=== PATIENT | female | born 1965 | race Caucasian/White ===

== ENCOUNTER 2016-08-14 22:50 | Emergency (ER) | payer SELFPAY ==
[2016-08-14] MEDS ORDERED: ASPIRIN 81 MG TABLET, CHEWABLE PO ONE (23:18)
--- NOTE | 2016-08-14 23:45 | EKG REPORT ---
SEVERITY:- BORDERLINE ECG - SINUS TACHYCARDIA CONSIDER INFERIOR INFARCT BORDERLINE T ABNORMALITIES, ANT-LAT LEADS : Confirmed by: Valeriy Jefferson 14-Aug-2016 23:43:57
[2016-08-15] MEDS ORDERED: CITALOPRAM HYDROBROMIDE 20 MG TABLET PO ONE (01:06)
[2016-08-15] MEDS ORDERED: ATENOLOL 50 MG TABLET PO ONE (01:06)
--- NOTE | 2016-08-15 01:06 | ER Document Report ---
ED Cardiac - General Chief Complaint: Chest Pain > 30 Stated Complaint: CHEST PAIN Time seen by provider: 01:05 Mode of Arrival: Ambulatory Information source: Patient TRAVEL OUTSIDE OF THE [place] IN LAST 30 DAYS: No - HPI Patient complains to provider of: Chest pain, Shortness of breath Was the onset of pain: Gradual Is the pain a: New problem Chest pain location: Other - Left anterior chest wall Quality of pain: Mild Severity now: None Severity at worst: Mild Chest pain precipitating factors: At Rest Cardiac risk factors: Hypertension Positive cardiac history: No Associated symptoms: None Exacerbated by: Coughing, Deep breaths, Torso movement Relieved by: Nothing Similar symptoms previously: No Recently seen / treated by doctor: No Notes: Patient is a 51-year-old female with a history of hypertension, who presents to the emergency room complaining of a headache 2-3 days and a fleeting episode of chest pain that occurred earlier in the evening, patient reports her chest pain is worse with movement, palpation or deep breaths, she states that she has had a productive cough this evening as well, denies having any chest pain at time of evaluation, patient does report that she recently ran out of her atenolol and Celexa a couple of days ago and is unable to get an appointment at the [facility] into September 14 - Related Data Allergies/Adverse Reactions: No Known Allergies Allergy (Verified 08/14/16 23:13) Past Medical History - General Information source: Patient - Social History Smoking Status: Never Smoker Chew tobacco use (# tins/day): No Frequency of alcohol use: None Drug Abuse: None Family History: Reviewed & Not Pertinent, Hypertension - Past Medical History Cardiac Medical History: Reports: Hx Hypercholesterolemia, Hx Hypertension Pulmonary Medical History: Denies: Hx COPD Endocrine Medical History: Denies: Hx Diabetes Mellitus Type 1, Hx Diabetes Mellitus Type 2 Renal/ Medical History: Denies: Hx Peritoneal Dialysis Psychiatric Medical History: Reports: Hx Anxiety, Hx Depression Past Surgical History: Reports: Hx Hysterectomy - Immunizations Hx Diphtheria, Pertussis, Tetanus Vaccination: Yes Review of Systems - Review of Systems Constitutional: No symptoms reported EENT: No symptoms reported Cardiovascular: Chest pain Respiratory: No symptoms reported Gastrointestinal: No symptoms reported Genitourinary: No symptoms reported Female Genitourinary: No symptoms reported Musculoskeletal: No symptoms reported Skin: No symptoms reported Hematologic/Lymphatic: No symptoms reported Neurological/Psychological: Headaches -: Yes All other systems reviewed and negative Physical Exam - Vital signs Vitals: Temp Pulse Resp BP Pulse Ox 98.6 F 123 H 20 196/122 H 99 08/14/16 23:09 08/14/16 23:09 08/14/16 23:09 08/14/16 23:09 08/14/16 23:09 Interpretation: Hypertensive, Tachycardic - General General appearance: Appears well, Alert - HEENT Head: Normocephalic, Atraumatic Eyes: Normal Pupils: PERRL - Respiratory Respiratory status: No respiratory distress Chest status: Tender - Tender to palpate over midsternum Breath sounds: Normal Chest palpation: Normal - Cardiovascular Rhythm: Regular Heart sounds: Normal auscultation Murmur: No - Abdominal Inspection: Normal Distension: No distension Bowel sounds: Normal Tenderness: Nontender Organomegaly: No organomegaly - Back Back: Normal, Nontender - Extremities General upper extremity: Normal inspection, Nontender, Normal color, Normal ROM , Normal temperature General lower extremity: Normal inspection, Nontender, Normal color, Normal ROM , Normal temperature, Normal weight bearing. No: Mak's sign - Neurological Neuro grossly intact: Yes Cognition: Normal Orientation: AAOx4 [place] Coma Scale Eye Opening: Spontaneous [place] Coma Scale Verbal: Oriented Mauro Coma Scale Motor: Obeys Commands [place] Coma Scale Total: 15 Speech: Normal Motor strength normal: LUE, RUE, LLE, RLE Sensory: Normal - Psychological Associated symptoms: Normal affect, Normal mood - Skin Skin Temperature: Warm Skin Moisture: Dry Skin Color: Normal Course - Re-evaluation Re-evalutation: 08/15/16 03:11 Patient resting comfortably and reports feeling much better, symptoms are resolved, blood pressure is 133/89, symptoms likely related to patient missing her medications for the last few days, she will be given a prescription for both atenolol and Celexa and advised to follow-up with the [facility] on September 14 as scheduled, or return if symptoms worsen, patient acknowledges understanding and agreement with this plan - Vital Signs Vital signs: Temp Pulse Resp BP Pulse Ox 98.6 F 123 H 12 133/89 H 100 08/14/16 23:09 08/14/16 23:09 08/15/16 03:01 08/15/16 03:01 08/15/16 04:01 - Laboratory Result Diagrams: 08/15/16 02:08 08/15/16 02:08 Laboratory results interpreted by me: 08/15/16 08/15/16 08/15/16 02:08 02:08 02:08 WBC 10.6 H Glucose 127 H Urine Protein 30 H Ur Leukocyte Esterase SMALL H - Diagnostic Test Radiology reviewed: Image reviewed, Reports reviewed - EKG Interpretation by Me EKG shows normal: Sinus rhythm Rate: Normal Rhythm: NSR When compared to previous EKG there are: No significant change Discharge - Discharge Clinical Impression: Headache Qualifiers: Headache type: unspecified Headache chronicity pattern: unspecified pattern Intractability: not intractable Qualified Code(s): R51 - Headache Hypertension Qualifiers: Hypertension type: essential hypertension Qualified Code(s): I10 - Essential ( primary) hypertension Condition: Stable Disposition: HOME, SELF-CARE Instructions: Headache ([facility]) Additional Instructions: Follow up with your primary care provider in one to 2 days. Return to the emergency room immediately if symptoms worsen or any additional concerns. Prescriptions: Atenolol 75 mg PO QHS #30 tablet Citalopram Hydrobromide [Celexa 40 mg Tablet] 1 tab PO QHS #30 tablet Forms: Elevated Blood Pressure
[2016-08-15 02:23] LABS: ABSOLUTE BASOPHILS # (AUTO) 0.1 10^3/uL (0.0-0.2); ABSOLUTE EOSINOPHILS # (AUTO) 0.4 10^3/uL (0.0-0.6); ABSOLUTE LYMPHOCYTES (AUTO) 3.4 10^3/uL (0.5-4.7); ABSOLUTE MONOCYTES (AUTO) 0.6 10^3/uL (0.1-1.4); ABSOLUTE NEUT (AUTO) 6.3 10^3/uL (1.7-8.2); BASOPHILS % (AUTO) 0.6 % (0-2); EOSINOPHILS % (AUTO) 3.5 % (0-6); HEMATOCRIT 38.1 % (36.0-47.0); HEMOGLOBIN 12.8 g/dL (12.0-15.5); HGB HCT DIFFERENCE 0.3; LYMPHOCYTES % (AUTO) 31.7 % (13-45); MEAN CORPUSCULAR HEMOGLOBIN 28.4 pg (27.0-33.4); MEAN CORPUSCULAR HGB CONC 33.7 g/dL (32.0-36.0); MEAN CORPUSCULAR VOLUME 85 fl (80-97); MONOCYTES % (AUTO) 5.3 % (3-13); RED BLOOD COUNT 4.51 10^6/uL (3.72-5.28); RED CELL DISTRIBUTION WIDTH 13.6 % (11.5-14.0); SEGMENTED NEUTROPHILS % (AUTO) 58.9 % (42-78); WHITE BLOOD COUNT 10.6 10^3/uL (4.0-10.5)
[2016-08-15 02:36] LABS: ALANINE AMINOTRANSFERASE 24 U/L (9-52); ALBUMIN 4.2 g/dL (3.5-5.0); ALKALINE PHOSPHATASE 82 U/L (38-126); ANION GAP 13 (5-19); ASPARTATE AMINO TRANSFERASE 23 U/L (14-36); BILIRUBIN,TOTAL 0.3 mg/dL (0.2-1.3); BLOOD UREA NITROGEN 13 mg/dL (7-20); CALCIUM 10.1 mg/dL (8.4-10.2); CARBON DIOXIDE 27 mmol/L (22-30); CHLORIDE 102 mmol/L (98-107); CREATINE KINASE 68 U/L (30-135); CREATININE RESULT 0.75 mg/dL (0.52-1.25); GLUCOSE 127 mg/dL (75-110); POTASSIUM 4.4 mmol/L (3.6-5.0); SODIUM 142.4 mmol/L (137-145)
[2016-08-15 02:40] LABS: APPEARANCE,URINE SLIGHTLY-CLOUDY; BILIRUBIN,URINE NEGATIVE (NEGATIVE); GLUCOSE, URINE NEGATIVE (NEGATIVE); KETONES,URINE NEGATIVE (NEGATIVE); LEUKOCYTE ESTERASE,URINE SMALL (NEGATIVE); NITRITE,URINE NEGATIVE (NEGATIVE); PROTEIN,URINE 30 mg/dL (NEGATIVE); URINE SPECIFIC GRAVITY 1.025; UROBILINOGEN,URINE NEGATIVE mg/dL (<2.0)
[2016-08-15 02:54] LABS: CREATINE KINASE MB 0.76 ng/mL (<4.55)
[2016-08-15 02:57] LABS: TROPONIN I < 0.012 ng/mL
[2016-08-15 04:20] VITALS: BP 135/92
== END 2016-08-15 04:22 | disposition home or self-care (01) ==
LOC: ER 22:50
DX: R51 Headache (principal); I10 Essential (primary) hypertension; R07.9 Chest pain, unspecified; R06.02 Shortness of breath; E78.00 Pure hypercholesterolemia, unspecified; Z90.710 Acquired absence of both cervix and uterus
CPT/HCPCS: 36415; 71020; 80053; 81001; 82550; 82553; 83880; 84484; 85025; 93005; 93010; 99285

== ENCOUNTER 2017-01-19 13:29 | Emergency (ER) | payer SELFPAY ==
[2017-01-19] MEDS ORDERED: PROMETHAZINE HCL 25 MG TABLET PO ONE (13:50)
[2017-01-19] MEDS ORDERED: OXYCODONE-ACETAMINOPHEN 5-325 MG TABLET PO ONE (13:50)
--- NOTE | 2017-01-19 14:44 | ER Document Report ---
ED Medical Screen (RME) - General Chief Complaint: Dizziness Stated Complaint: MOUTH PAIN,HEADACHE Time Seen by Provider: 01/19/17 13:50 Notes: Patient is complaining of pain in a cracked tube in the upper right gum that has been there for quite a while, but increased and got much worse last night. Additionally, Monday, she began having a severe frontal headache and feeling dizzy yesterday. No nausea or vomiting. No fever. History of hypertension. History of depression, out of medications. History of anxiety. TRAVEL OUTSIDE OF THE [place] IN LAST 30 DAYS: No - Related Data Allergies/Adverse Reactions: No Known Allergies Allergy (Verified 01/19/17 13:40) Past Medical History - Past Medical History Cardiac Medical History: Reports: Hx Hypercholesterolemia, Hx Hypertension Pulmonary Medical History: Denies: Hx COPD Endocrine Medical History: Denies: Hx Diabetes Mellitus Type 1, Hx Diabetes Mellitus Type 2 Renal/ Medical History: Denies: Hx Peritoneal Dialysis Psychiatric Medical History: Reports: Hx Anxiety, Hx Depression Past Surgical History: Reports: Hx Hysterectomy - Immunizations Hx Diphtheria, Pertussis, Tetanus Vaccination: Yes Physical Exam - Vital signs Vitals: Temp Pulse Resp BP Pulse Ox 98.5 F 104 H 18 150/105 H 99 01/19/17 13:39 01/19/17 13:39 01/19/17 13:39 01/19/17 13:39 01/19/17 13:39 Course - Vital Signs Vital signs: Temp Pulse Resp BP Pulse Ox 98.5 F 104 H 18 150/105 H 99 01/19/17 13:39 01/19/17 13:39 01/19/17 13:39 01/19/17 13:39 01/19/17 13:39
[2017-01-19] MEDS ORDERED: DIPHENHYDRAMINE HCL 50 MG/ML VIAL IV ONE (15:01)
[2017-01-19] MEDS ORDERED: PROCHLORPERAZINE EDISYLATE INJ 10 MG/2 ML VIAL IV ONE (15:01)
[2017-01-19] MEDS ORDERED: KETOROLAC TROMETHAMINE INJ/PF 30 MG/1 ML SDV IV ONE (15:01)
[2017-01-19] MEDS ORDERED: NORMAL SALINE 1000 ML 1,000 ML IV ONE (15:01)
[2017-01-19] MEDS ORDERED: BUPIVACAINE HCL 0.75% INJ/PF (7.5 MG/1 ML) 10 ML SDV INJ ONE (15:05)
--- NOTE | 2017-01-19 15:09 | ER Document Report ---
HPI - HPI Pain Level: 5 Notes: Patient is a 51-year-old female who presents to the ED complaining of a headache 1-2 days along with right upper molar pain 1 day. Patient states that she does have poor dentition and she has had intermittent pain in that right tooth for years, but began noticing a really sharp pain just recently and is wondering if nerve is exposed. Patient does not believe that her tooth is infected. She has not noticed any discharge swelling, or any fever. Patient states that she does feel a little bit dizzy at times. She does have nasal congestion discharge. Patient states that she did have a URI recently but that has since overall resolved. She still eating and drink without any problems. The headache pain does not radiate and is near the frontal/top of her head. The pain is not debilitating. Patient states that she has had headaches like this in the past. She denies any smoking history or drug use. Denies any alcohol intake. Patient states that she has no drug allergies. Patient has a history of hypertension and depression which she takes medication for. Denies any recent travel or sick contacts. Patient states that immunizations are up-to -date. Denies any fever, ear pain, changes in vision/mentation/speech, sore throat, dysphagia, dysphasia, chest pain, palpitations, syncope, cough, wheeze, shortness of breath, abdominal pain, nausea/vomiting/diarrhea, loss of control bowel or bladder, urinary retention, dysuria, hematuria, muscle paralysis/ weakness, numbness/tingling, or rash. - ROS Notes: REVIEW OF SYSTEMS: CONSTITUTIONAL : Denies fever, chills, or sweats. Denies recent illness. EENT: see hpi CARDIOVASCULAR: Denies chest pain. Denies palpitations or racing or irregular heart beat. Denies ankle edema. RESPIRATORY: Denies cough, cold, or chest congestion. Denies shortness of breath, difficulty breathing, or wheezing. GASTROINTESTINAL: Denies abdominal pain or distention. Denies nausea, vomiting , or diarrhea. Denies blood in vomitus, stools, or per rectum. Denies black, tarry stools. Denies constipation. GENITOURINARY: Denies difficulty urinating, painful urination, burning, frequency, blood in urine, or discharge. MUSCULOSKELETAL: Denies back or neck pain or stiffness. Denies joint pain or swelling. SKIN: Denies rash, lesions or sores. NEUROLOGICAL: + AVILA/occ dizziness. see hpi. Denies confusion or altered mental status. Denies passing out or loss of consciousness. Denies lightheadedness. Denies weakness or paralysis or loss of use of either side. Denies problems with gait or speech. Denies sensory loss, numbness, or tingling. Denies seizures. PSYCHIATRIC: Denies anxiety or stress. Denies depression, suicidal ideation, or homicidal ideation. ALL OTHER SYSTEMS REVIEWED AND NEGATIVE. Dictation was performed using [employer] voice recognition software - REPRODUCTIVE Reproductive: DENIES: : - DERM Skin Color: Normal Past Medical History - Social History Smoking Status: Never Smoker Family History: Reviewed & Not Pertinent, Hypertension Patient has suicidal ideation: No Patient has homicidal ideation: No - Past Medical History Cardiac Medical History: Reports: Hx Hypercholesterolemia, Hx Hypertension Pulmonary Medical History: Denies: Hx COPD Endocrine Medical History: Denies: Hx Diabetes Mellitus Type 1, Hx Diabetes Mellitus Type 2 Renal/ Medical History: Denies: Hx Peritoneal Dialysis Psychiatric Medical History: Reports: Hx Anxiety, Hx Depression Past Surgical History: Reports: Hx Hysterectomy - Immunizations Hx Diphtheria, Pertussis, Tetanus Vaccination: Yes Vertical Provider Document - CONSTITUTIONAL Agree With Documented VS: Yes Notes: PHYSICAL EXAMINATION: GENERAL: Well-appearing, well-nourished and in no acute distress. HEAD: Atraumatic, normocephalic. Non-tender. EYES: Pupils equal round and reactive to light, extraocular movements intact, sclera anicteric, conjunctiva are normal. [place] intact. ENT: EAC clear b/l. TM's intact b/l without erythema, fluid, or perforation. Nares patent and without discharge. oropharynx clear without exudates. No tonsilar hypertrophy or erythema. Moist mucous membranes. No sinus tenderness. No facial swelling Mouth: Fractured #3 molar with decay and generalized poor dentition in the mouth. No erythema, abscess, or discharge noted. + sensitivity/tenderness. NECK: Normal range of motion, supple without lymphadenopathy. No rigidity/ meningismus. LUNGS: Breath sounds clear to auscultation bilaterally and equal. No wheezes rales or rhonchi. HEART: Regular rate and rhythm without murmurs, rubs, gallops. ABDOMEN: Soft, nontender, nondistended abdomen. No guarding, no rebound. No masses appreciated. Normal bowel sounds present. No CVA tenderness bilaterally. Musculoskeletal: Ext b/l: FROM to passive/active. Strength 5+/5. Extremities: No cyanosis, clubbing, or edema b/l. Peripheral pulses 2+. Capillary refill less than 2 seconds. NEUROLOGICAL: MMSE intact. Cranial nerves grossly intact. Normal speech, normal gait. Normal sensory, motor exams. Reflexes 2+ b/l. Pronator neg b/l. SLIM's intact. Rooney-heel, finger-nose intact. PSYCH: Normal mood, normal affect. SKIN: Warm, Dry, normal turgor, no rashes or lesions noted. - INFECTION CONTROL TRAVEL OUTSIDE OF THE [place] IN LAST 30 DAYS: No - RESPIRATORY O2 Sat by Pulse Oximetry: 99 Course - Re-evaluation Re-evalutation: 01/19/17 16:50 Patient is an afebrile, well-hydrated, 51-year-old female who presents to the ED with a headache and dental pain. Vitals are stable. PE otherwise unremarkable for any focal neurological deficits. MMSE intact. Low suspicion for acute glaucoma, temporal arteritis, meningitis, tracheal hemorrhage, ischemic stroke, fracture, blood leaks angina, pharyngeal abscess, respiratory compromise at this time. Compazine 10 mg IV, Benadryl 50 mg IV, Toradol 30 mg IV, and 1 L normal saline provided today. Patient had also received oxycodone at [facility]. Digital block performed successfully without complication. Patient noticed improvement within 10-20 seconds of the dental pain. I have a low suspicion for any dental infection, but will cover her prophylactically due to her poor dentition in the knee off chance that there is an infection that I cannot see at this time. I will give her clindamycin twice a day for 10 days. Advised patient to get an appointment with the dentist for removal of that tooth. Recheck with your PCM in 2-3 days. Return to the ED with any worsening/ concerning symptoms otherwise as reviewed discharge. Patient is in agreement. 01/19/17 16:53 Upon re-evaluation of patient. Pt states that she no longer has any AVILA and her tooth pain continues to be blocked adequately. No new concerns or complaints. Her daughter is here to take her home. Stable for discharge. - Vital Signs Vital signs: Temp Pulse Resp BP Pulse Ox 98.5 F 104 H 18 150/105 H 99 01/19/17 13:39 01/19/17 13:39 01/19/17 13:39 01/19/17 13:39 01/19/17 13:39 Procedures - Additional Procedures Dental block #3 molar Time performed: 15:40 Additional Procedures: Other - dental block #3 molar Notes: 01/19/17 15:50 2cc Sensorcaine 0.75% utilized to successfully block the #3 molar without complications. 21g 1.5" needle used with 5cc syringe. Discharge - Discharge Clinical Impression: Toothache Headache Qualifiers: Headache type: unspecified Headache chronicity pattern: acute headache Intractability: intractable Qualified Code(s): R51 - Headache Condition: Stable Instructions: [facility], Clindamycin ([facility]), Antinausea Medication ([facility]), Dizziness ([facility]), Toothache ([facility]) Additional Instructions: [place] and floss twice daily Peroxide rinse, salt water gargles Tylenol/ibuprofen as needed Rest Take antibiotic as directed Schedule an appointment with a dentist Recheck with your PCM in 2-3 days Return to the ED with any worsening symptoms and/or development of fever, headache, facial swelling, trouble swallowing, swelling in the mouth/throat/ tongue/lips, chest pain, palpitations, syncope, shortness of breath, trouble breathing, abdominal pain, n/v/d, blood in stool/urine, loss of control of bowel /bladder, urinary retention, muscle weakness/paralysis, numbness/tingling, changes in speech/mentation/vision, or other worsening symptoms that are concerning to you. Prescriptions: Clindamycin HCl [Cleocin 300 mg Capsule] 300 mg PO BID #20 capsule Forms: Elevated Blood Pressure Referrals: [facility] [Provider Group] - Follow up as needed [facility] [Provider Group] - Follow up as needed [facility] [Provider Group] - Follow up as needed
[2017-01-19 17:47] VITALS: BP 138/73
== END 2017-01-19 17:20 | disposition home or self-care (01) ==
LOC: ER 13:29
DX: K08.89 Other specified disorders of teeth and supporting structures (principal); R51 Headache; R42 Dizziness and giddiness; R09.81 Nasal congestion
CPT/HCPCS: 99283; 96374; J3490; J1200; J1885; J0780; J7030

== ENCOUNTER 2017-06-20 | Emergency (ER) | payer SELFPAY ==
--- NOTE | 2017-06-20 02:05 | ER Document Report ---
HPI - HPI Pain Level: 3 Notes: Patient is a 52-year-old female with a history of hypertension depression who presents the ED complaining of nasal congestion/discharge, sinus pressure pain, frontal headache when bending forward, occasional dry nonproductive cough 2 weeks. Patient states that she has been using [id number] meds with minimal relief. She still eating and drinking without any difficulties. She is urinating normally having normal bowel movements. Patient denies any smoking or IV drug use. Denies any fever, head injury, neck pain, changes in vision/speech/mentation/hearing, sore throat, chest pain, palpitations, syncope , shortness of breath, wheeze, dyspnea, abdominal pain, nausea/vomiting/diarrhea , urinary retention, dysuria, hematuria, loss of control of bowel or bladder, numbness/tingling, muscle paralysis/weakness, or rash. - ROS Notes: REVIEW OF SYSTEMS: CONSTITUTIONAL : Denies fever, chills, or sweats. see hpi. EENT: see hpi. CARDIOVASCULAR: Denies chest pain. Denies palpitations or racing or irregular heart beat. Denies ankle edema. RESPIRATORY: see hpi. Denies shortness of breath, difficulty breathing, or wheezing. GASTROINTESTINAL: Denies abdominal pain or distention. Denies nausea, vomiting , or diarrhea. Denies blood in vomitus, stools, or per rectum. Denies black, tarry stools. Denies constipation. GENITOURINARY: Denies difficulty urinating, painful urination, burning, frequency, blood in urine, or discharge. MUSCULOSKELETAL: Denies back or neck pain or stiffness. Denies joint pain or swelling. SKIN: Denies rash, lesions or sores. NEUROLOGICAL: see hpi. Denies confusion or altered mental status. Denies passing out or loss of consciousness. Denies dizziness or lightheadedness. Denies weakness or paralysis or loss of use of either side. Denies problems with gait or speech. Denies sensory loss, numbness, or tingling. Denies seizures. PSYCHIATRIC: Denies anxiety or stress. Denies depression, suicidal ideation, or homicidal ideation. ALL OTHER SYSTEMS REVIEWED AND NEGATIVE. Dictation was performed using [email or web address] voice recognition software - REPRODUCTIVE Reproductive: DENIES: : Past Medical History - Social History Smoking Status: Never Smoker Family History: Reviewed & Not Pertinent, Hypertension - Past Medical History Cardiac Medical History: Reports: Hx Hypercholesterolemia, Hx Hypertension Pulmonary Medical History: Denies: Hx COPD Endocrine Medical History: Denies: Hx Diabetes Mellitus Type 1, Hx Diabetes Mellitus Type 2 Renal/ Medical History: Denies: Hx Peritoneal Dialysis Psychiatric Medical History: Reports: Hx Anxiety, Hx Depression Past Surgical History: Reports: Hx Hysterectomy - Immunizations Hx Diphtheria, Pertussis, Tetanus Vaccination: Yes Vertical Provider Document - CONSTITUTIONAL Agree With Documented VS: Yes Notes: PHYSICAL EXAMINATION: GENERAL: Well-appearing, well-nourished and in no acute distress. A&Ox4 HEAD: Atraumatic, normocephalic. EYES: Pupils equal round and reactive to light, extraocular movements intact, sclera anicteric, conjunctiva are normal. Vis dillard intact. ENT: EAC clear b/l. TM's intact b/l without erythema, fluid, or perforation. Nares patent and with yellow discharge. oropharynx clear without exudates. No tonsilar hypertrophy or erythema. Moist mucous membranes. + sinus tenderness. No facial swelling. No airway compromise. NECK: Normal range of motion, supple without lymphadenopathy. No rigidity/ meningismus. LUNGS: Breath sounds clear to auscultation bilaterally and equal. No wheezes rales or rhonchi. HEART: Regular rate and rhythm without murmurs, rubs, gallops. Musculoskeletal: FROM to passive/active. Strength 5+/5. Extremities: No cyanosis, clubbing, or edema b/l. Peripheral pulses 2+. Capillary refill less than 3 seconds. NEUROLOGICAL: MMSE intact. Cranial nerves grossly intact. Normal speech, normal gait. Normal sensory, motor exams. Pronator drift negative. SLIM's intact. PSYCH: Normal mood, normal affect. SKIN: Warm, Dry, normal turgor, no rashes or lesions noted. - INFECTION CONTROL TRAVEL OUTSIDE OF THE [place] IN LAST 30 DAYS: No - RESPIRATORY O2 Sat by Pulse Oximetry: 98 Course - Re-evaluation Re-evalutation: 06/20/17 02:40 Pt's blood pressure remains elevated. Pt did not take her evening atenolol dose. Atenolol 50mg given PO today. Reviewed with Dr. Chun who is in agreement with being able to discharge with current BP as there are no focal neurological deficits on exam. Patient is an afebrile, well-hydrated, 52-year-old female who presents the ED with acute sinusitis. Vitals otherwise are stable. PE is otherwise unremarkable for any focal neurological deficits. MMSE intact. Low suspicion for any ischemic stroke, intracranial hemorrhage, temporal arteritis, ACS, PE, pneumothorax, pericarditis, dissection, respiratory compromise, severe dehydration, sepsis, meningitis, or other systemic emergent condition at this time. Patient is aware that her condition can change from initial presentation and she needs to monitor symptoms closely and seek medical attention for any acute changes. I will send her home with a pocket prescription for Augmentin that she may begin in 2-3 days with ongoing/worsening symptoms. Recommend conservative measures for symptoms. Recheck with your PCM in 3-5 days. Return to the ED with any worsening/concerning symptoms otherwise as reviewed in discharge. Patient is in agreement. - Vital Signs Vital signs: Temp Pulse Resp BP Pulse Ox 98.6 F 93 18 167/105 H 98 06/20/17 00:01 06/20/17 00:01 06/20/17 00:01 06/20/17 00:01 06/20/17 00:01 Discharge - Discharge Clinical Impression: Acute sinusitis Qualifiers: Sinusitis location: other Recurrence: non-recurrent Qualified Code(s): J01.80 - Other acute sinusitis Condition: Stable Disposition: HOME, SELF-CARE Instructions: Sinusitis ([facility]) Additional Instructions: Maintain adequate fluid intake Take meds as directed with ongoing/worsening symptoms x2-3 days Take your Blood pressure meds as directed and monitor closely; low sodium diet. tylenol/ibuprofen as needed Nasal saline rinses and nasonex may help over the counter cold medication as needed for symptoms Humidified air may help F/u: with your PCM in 3-5 days for a recheck Return to the ED with any fever, worsening pain, chest pain, palpitations, syncope, worsening AVILA, neck pain/stiffness, shortness of breath, wheezing, drooling, trouble swallowing/breathing, abdominal pain, n/v/d, rash, or worsening/concerning symptoms otherwise. Prescriptions: Amox Tr/Potassium Clavulanate [Augmentin 875-125 Tablet] 1 tab PO BID 10 Days # 20 tablet Forms: Elevated Blood Pressure Referrals: [facility] [Provider Group] - Follow up as needed
[2017-06-20] MEDS ORDERED: ACETAMINOPHEN 325 MG TABLET PO ONE (02:06)
[2017-06-20] MEDS ORDERED: ATENOLOL 50 MG TABLET PO ONE ×2 (02:13→02:45)
[2017-06-20] MEDS ORDERED: PROCHLORPERAZINE MALEATE 10 MG TABLET PO ONE (02:45)
[2017-06-20] MEDS ORDERED: DIPHENHYDRAMINE HCL 50 MG CAPSULE PO ONE (02:48)
[2017-06-20 03:15] VITALS: BP 184/97
== END 2017-06-20 03:15 | disposition home or self-care (01) ==
LOC: ER
DX: J01.90 Acute sinusitis, unspecified (principal); R51 Headache; R05 Cough; I10 Essential (primary) hypertension; Z79.899 Other long term (current) drug therapy
CPT/HCPCS: 99283; S0183

== ENCOUNTER → 2017-12-22 | Outpatient (CLI) | payer OTHER ==
[2017-12-22 12:47] LABS: ABSOLUTE EOSINOPHILS # (AUTO) 0.2 10^3/uL (0.0-0.6); ABSOLUTE LYMPHOCYTES (AUTO) 1.7 10^3/uL (0.5-4.7); ABSOLUTE MONOCYTES (AUTO) 0.3 10^3/uL (0.1-1.4); ABSOLUTE NEUT (AUTO) 2.6 10^3/uL (1.7-8.2); BASOPHILS % (AUTO) 0.8 % (0-2); EOSINOPHILS % (AUTO) 4.9 % (0-6); HEMATOCRIT 37.3 % (36.0-47.0); HEMOGLOBIN 12.6 g/dL (12.0-15.5); LYMPHOCYTES % (AUTO) 34.3 % (13-45); MEAN CORPUSCULAR HEMOGLOBIN 28.4 pg (27.0-33.4); MEAN CORPUSCULAR HGB CONC 33.8 g/dL (32.0-36.0); MEAN CORPUSCULAR VOLUME 84 fl (80-97); MONOCYTES % (AUTO) 6.6 % (3-13); PLATELET COUNT 251 10^3/uL (150-450); RED BLOOD COUNT 4.44 10^6/uL (3.72-5.28); RED CELL DISTRIBUTION WIDTH 13.9 % (11.5-14.0); SEGMENTED NEUTROPHILS % (AUTO) 53.4 % (42-78); TOTAL CELLS COUNTED % (AUTO) 100 %
[2017-12-22 13:08] LABS: ALANINE AMINOTRANSFERASE 26 U/L (9-52); ALBUMIN 4.6 g/dL (3.5-5.0); ALKALINE PHOSPHATASE 52 U/L (38-126); ANION GAP 12 (5-19); ASPARTATE AMINO TRANSFERASE 24 U/L (14-36); BILIRUBIN,DIRECT 0.3 mg/dL (0.0-0.4); BILIRUBIN,TOTAL 0.4 mg/dL (0.2-1.3); BLOOD UREA NITROGEN 20 mg/dL (7-20); CARBON DIOXIDE 30 mmol/L (22-30); CHLORIDE 104 mmol/L (98-107); CHOLESTEROL 243.75 mg/dL (0-200); GLUCOSE 104 mg/dL (75-110); SODIUM 145.9 mmol/L (137-145); TOTAL PROTEIN 7.7 g/dL (6.3-8.2); TRIGLYCERIDES 132 mg/dL (<150)
[2017-12-22 13:23] LABS: DIRECT LDL 164 mg/dL (<100)
== END ==
LOC: CCC 11:42
DX: I10 Essential (primary) hypertension (principal)
CPT/HCPCS: 36415; 80053; 80061; 83036; 84443; 85025

== ENCOUNTER 2018-01-27 13:01 | Emergency (ER) | payer SELFPAY ==
[2018-01-27 13:15] VITALS: BP 144/66
[2018-01-27] MEDS ORDERED: PENICILLIN V POTASSIUM 500 MG TABLET PO ONE (13:40)
[2018-01-27] MEDS ORDERED: IBUPROFEN 600 MG TABLET PO ONE (13:40)
[2018-01-27] MEDS ORDERED: LIDOCAINE 2% VISCOUS SOLN 20 ML UDCUP PO ONE (13:40)
--- NOTE | 2018-01-27 13:43 | ER Document Report ---
ED Oral Problem - General Chief Complaint: Toothache Stated Complaint: MOUTH PAIN/WEAKNESS Time Seen by Provider: 01/27/18 13:30 Mode of Arrival: Ambulatory Information source: Patient Notes: Patient is a 52-year-old female who presents with chief complaint of dental pain. Patient reports that she has a long history of having multiple cavities and dental infections over the past few years, patient reports that this episode has been going on for approximately 2 days. Patient reports the pain is in her right upper tooth where she has a history of a broken tooth in that area. TRAVEL OUTSIDE OF THE [place] IN LAST 30 DAYS: No - Related Data Allergies/Adverse Reactions: No Known Allergies Allergy (Verified 06/20/17 00:01) Past Medical History - General Information source: Patient - Social History Smoking Status: Never Smoker Chew tobacco use (# tins/day): No Frequency of alcohol use: None Drug Abuse: None Family History: Reviewed & Not Pertinent, Hypertension Patient has suicidal ideation: No Patient has homicidal ideation: No - Past Medical History Cardiac Medical History: Reports: Hx Hypercholesterolemia, Hx Hypertension Pulmonary Medical History: Denies: Hx COPD Endocrine Medical History: Denies: Hx Diabetes Mellitus Type 1, Hx Diabetes Mellitus Type 2 Renal/ Medical History: Denies: Hx Peritoneal Dialysis Psychiatric Medical History: Reports: Hx Anxiety, Hx Depression Past Surgical History: Reports: Hx Hysterectomy - Immunizations Hx Diphtheria, Pertussis, Tetanus Vaccination: Yes Review of Systems - Review of Systems Constitutional: No symptoms reported EENT: See HPI Cardiovascular: No symptoms reported Respiratory: No symptoms reported Gastrointestinal: No symptoms reported Genitourinary: No symptoms reported Female Genitourinary: No symptoms reported Musculoskeletal: No symptoms reported Skin: No symptoms reported Hematologic/Lymphatic: No symptoms reported Neurological/Psychological: No symptoms reported Physical Exam - Vital signs Vitals: Temp Pulse Resp BP Pulse Ox 98.8 F 70 18 144/66 H 98 01/27/18 13:14 01/27/18 13:14 01/27/18 13:14 01/27/18 13:14 01/27/18 13:14 - Notes Notes: PHYSICAL EXAMINATION: GENERAL: Well-appearing, well-nourished and in no acute distress. HEAD: Atraumatic, normocephalic. EYES: Pupils equal round and reactive to light, extraocular movements intact, conjunctiva are normal. ENT: Nares patent, oropharynx clear without exudates. Moist mucous membranes. Dental caries noted throughout patient's mouth, broken tooth noted at tooth #3 with erythema and drainage from the center of the tooth. NECK: Normal range of motion, supple without lymphadenopathy LUNGS: Breath sounds clear to auscultation bilaterally and equal. No wheezes rales or rhonchi. HEART: Regular rate and rhythm without murmurs Musculoskeletal: Normal range of motion, no pitting or edema. No cyanosis. NEUROLOGICAL: Cranial nerves grossly intact. Normal speech, normal gait. Normal sensory, motor exams PSYCH: Normal mood, normal affect. SKIN: Warm, Dry, normal turgor, no rashes or lesions noted. Course - Re-evaluation Re-evalutation: Patient has what appears to be a reinfection and an old broken tooth. Patient reports that the tooth has been broken for several years and has been infected multiple times. Patient reports that the pain began [address] patient on antibiotics and [facility] as patient reports she does not have dental insurance. - Vital Signs Vital signs: Temp Pulse Resp BP Pulse Ox 98.8 F 70 18 144/66 H 98 01/27/18 13:14 01/27/18 13:14 01/27/18 13:14 01/27/18 13:14 01/27/18 13:14 Discharge - Discharge Clinical Impression: Dental infection Condition: Stable Disposition: HOME, SELF-CARE Additional Instructions: TOOTHACHE: Your pain is due to dental decay. The tooth must be repaired in order for you to feel better. You will, therefore, be referred to a dentist. We do not have dentists on the staff at [facility]. Severe swelling or drainage around a tooth usually means a dental abscess. This also requires evaluation and treatment by the dentist, but antibiotics may be prescribed while awaiting dental treatment. You should be rechecked immediately if you develop major swelling of the face, increasing pain, a lump in the jaw or gums, headache, difficulty swallowing, or fever. PENICILLIN V K: You have been given a prescription for Penicillin VK. Your physician has determined that this is the best antibiotic for your condition. Pen VK can be taken with meals, however more of the antibiotic gets into the bloodstream if it's taken on an empty stomach. Penicillin usually has no side effects. However, allergy to penicillins is common. If you have had an allergic reaction to any drug of the penicillin family, you should never take any other penicillin. Notify your doctor at once if you develop hives, itching, swelling, faintness, or shortness of breath. FOLLOW-UP CARE: You have been referred for follow-up care to the dentists listed below. Call the dentists office for an appointment as you were instructed or within the next two days. If you experience worsening or a significant change in your symptoms, notify the physician immediately or return to the Emergency Department at any time for re-evaluation. [facility] [address] [place] [address] Prescriptions: Penicillin V Potassium [Penicillin Vk 500 mg Tablet] 500 mg PO BID #20 tablet Ref[facility]: [facility] [NO [facility]AL MD] - Follow up as needed
== END 2018-01-27 13:58 | disposition home or self-care (01) ==
LOC: ER 13:01
DX: K04.7 Periapical abscess without sinus (principal); R53.1 Weakness; E78.00 Pure hypercholesterolemia, unspecified; I10 Essential (primary) hypertension; Z90.710 Acquired absence of both cervix and uterus
CPT/HCPCS: 99282; J3490

== ENCOUNTER → 2018-03-08 | Outpatient (CLI) | payer OTHER ==
--- NOTE | 2018-03-08 15:55 | XCELERA REPORT ---
[address] [address] Tel: [phone] Fax: [phone] Lower Extremity Arterial Evaluation Name: RAGINI JOAQUIN Age: 53 yrs Gender: Female : 1965 Patient Status: Outpatient Patient Location: [facility] Study Date: 03/08/2018 10:14 AM Procedure: Ankle brachial indicies performed. Reason For Study: DIMINISHED LE PULSES [facility]ing Physician: [facility] Performed By: Ariel Kendall Right Side Arterial Evaluation BETHANIE in Posterior Tibial:1.18. Multiphasic waveform. Left Side Arterial Evaluation BETHANIE in Posterior Tibial:1. Multiphasic waveform. Interpretation Summary Normal BETHANIE's. : [facility] > Capo Gerber
--- NOTE | 2018-03-08 17:43 | XCELERA REPORT ---
[address] [address] Transthoracic Echocardiogram Report Name: RAGINI JOAQUIN Age: 53 yrs Gender: Female : 1965 Patient Status: Outpatient Patient Location: Study Date: 03/08/2018 08:18 AM Height: 66 in Weight: 215 lb BSA: 2.1 m2 Procedure: A complete two-dimensional transthoracic echocardiogram was performed (2D, M-mode, spectral and color flow Doppler). The study was technically difficult with many images being suboptimal in quality. Reason For Study: HTN Ordering Physician: [facility] Performed By: Ariel Kendall Interpretation Summary The left ventricular ejection fraction is preserved. Consider additional methods to assess LVEF such as MUGA scan, CTA heart, cardiac MRI, ARIANA, etc. if clinically indicated. There is borderline concentric left ventricular hypertrophy. The left ventricle is grossly normal size. Not all wall segments were well visualized. Doppler measurements suggest pseudonormalized left ventricular relaxation, which is associated with grade II/IV or mild to moderate diastolic dysfunction The right ventricular systolic function is normal. The left atrium is mildly dilated. The right atrium is normal. There is a trace amount of mitral regurgitation There is no mitral valve stenosis. No aortic regurgitation is present. There is no aortic valve stenosis There is a trace to mild amount of tricuspid regurgitation There is mild pulmonary hypertension by echo Right ventricular systolic pressure is estimated to be elevated at 30-40mmHg. The inferior vena cava appeared normal and decreased > 50% with respiration (RAP 5-10 mmHg) The aortic root is not well visualized but is probably normal size. There is no pericardial effusion. MMode/2D Measurements & Calculations RVDd: 3.8 cm LVIDd: 4.2 cm FS: 28.1 % Ao root diam: 2.5 cm IVSd: 0.81 cm LVIDs: 3.0 cm EDV(Teich): 80.0 ml Ao root area: 5.1 cm2 LVPWd: 0.95 cm ESV(Teich): 36.2 ml LA dimension: 3.7 cm EF(Teich): 54.8 % Doppler Measurements & Calculations MV E max jose alejandro: MV P1/2t max jose alejandro: Ao V2 max: LV V1 max P.4 cm/sec 69.9 cm/sec 137.6 cm/sec 6.5 mmHg MV A max jose alejandro: MV P1/2t: 76.4 msec Ao max P.6 mmHgLV V1 max: 106.1 cm/sec MVA(P1/2t): 2.9 cm2 127.3 cm/sec MV E/A: 0.59 MV dec slope: 268.0 cm/sec2 MV dec time: 0.24 sec PA V2 max: TR max jose alejandro: MV P1/2t-pr_phl: 111.1 cm/sec 285.0 cm/sec 76.4 msec PA max P.9 mmHgTR max P.5 mmHg Left Ventricle The left ventricle is grossly normal size. There is borderline concentric left ventricular hypertrophy. The left ventricular ejection fraction is preserved. Consider additional methods to assess LVEF such as MUGA scan, CTA heart, cardiac MRI, ARIANA, etc. if clinically indicated. Doppler measurements suggest pseudonormalized left ventricular relaxation, which is associated with grade II/IV or mild to moderate diastolic dysfunction. Not all wall segments were well visualized. Right Ventricle The right ventricle is grossly normal size. There is normal right ventricular wall thickness. The right ventricular systolic function is normal. Atria The right atrium is normal. The left atrium is mildly dilated. Interarterial septum not well visualized and not well dopplered. Cannot comment on ASD/PFO presence. Mitral Valve The mitral valve is grossly normal. There is no mitral valve stenosis. There is a trace amount of mitral regurgitation. Aortic Valve The aortic valve is not well visualized secondary to technical limitations. There is no aortic valve stenosis. No aortic regurgitation is present. Tricuspid Valve The tricuspid valve is not well visualized, but is grossly normal. There is no tricuspid stenosis. There is a trace to mild amount of tricuspid regurgitation. There is mild pulmonary hypertension by echo. Right ventricular systolic pressure is estimated to be elevated at 30-40mmHg. Pulmonic Valve The pulmonic valve is not well visualized. Great Vessels The aortic root is not well visualized but is probably normal size. The inferior vena cava appeared normal and decreased > 50% with respiration (RAP 5-10 mmHg). Effusions There is no pericardial effusion. : [facility] > Valeriy Jefferson
== END ==
LOC: SP 07:26
DX: R03.0 Elevated blood-pressure reading, without diagnosis of hypertension (principal); I10 Essential (primary) hypertension; R09.89 Other specified symptoms and signs involving the circulatory and respiratory systems
CPT/HCPCS: 93306; 93922

== ENCOUNTER → 2018-05-07 | Outpatient (CLI) | payer OTHER ==
--- NOTE | 2018-05-07 15:48 | RADIOLOGY REPORT (SQ) ---
EXAM DESCRIPTION: BARIUM SWALLOW ESOPHAGUS COMPLETED DATE/TIME: 05/07/2018 9:52 am REASON FOR STUDY: OTHER ADVERSE FOOD REACTIONS, NOT ELSEWHERE CLASSIFIED, INITIAL ENCOUNTER T78.1XX A OTH ADVERSE FOOD REACTIONS, NOT ELSEWHERE CLASSIFIE R10.13 EPIGASTRIC PAIN COMPARISON: None. TECHNIQUE: Under fluoroscopic guidance, patient ingested effervescent granules followed by thick and thin barium. Fluoroscopic spot images and routine radiographic images acquired and stored on PACS. 12 MM BARIUM TABLET GIVEN: The patient swallowed a 12 mm barium tablet which passed easily through th e esophagus and into the stomach without delay. LIMITATIONS: None. FLUOROSCOPY TIME: FLUORO TIME: 1.29 minutes 4 images saved to PACS. FINDINGS: NEUROMUSCULAR COORDINATION OF SWALLOW: Normal. No aspiration. ESOPHAGEAL MOTILITY: Normal peristalsis. No esophageal spasm. ESOPHAGEAL MUCOSA: Normal mucosa without masses or ulceration. GASTRO-ESOPHAGEAL JUNCTION: No hiatal hernia or reflux. NON-GI TRACT STRUCTURES: No significant finding. OTHER: No other significant finding. IMPRESSION: NORMAL DOUBLE CONTRAST BARIUM SWALLOW. RECOMMENDATION: None COMMENT: None Quality ID [id number]: Final reports for procedures using fluoroscopy that document radiation exposure severo alessio, or exposure time and number of fluorographic images (if radiation exposure indices are not avail able) TECHNICAL DOCUMENTATION: JOB ID: [id number] [employer]- All Rights Reserved Reading location - IP/workstation name: [email or web address]
== END ==
LOC: RAD 09:07
DX: T78.1XXA Other adverse food reactions, not elsewhere classified, initial encounter (principal); R10.13 Epigastric pain
CPT/HCPCS: 74220

== ENCOUNTER → 2018-05-24 | Outpatient (CLI) | payer OTHER ==
--- NOTE | 2018-05-24 14:41 | RADIOLOGY REPORT (SQ) ---
EXAM DESCRIPTION: CTA HEAD COMPLETED DATE/TIME: 05/24/2018 2:02 pm REASON FOR STUDY: R03.0 ELEVATED BLOOD-PRESSURE READING, W/O DIAGNOSIS OF HTN I10 ESSENTIAL ( I10 E SSENTIAL (PRIMARY) HYPERTENSION R03.0 ELEVATED BLOOD-PRESSURE READING, W/O DIAGNOSIS OF HTN COMPARISON: None. TECHNIQUE: Post IV contrast scanning, thin section axial imaging through the brain to evaluate the a rterial structures. Source and MIP images are saved and reviewed on PACS. Advanced 3D imaging as volume-rendering, MIPs, SSD performed? yes All CT scanners at this facility use dose modulation, iterative reconstruction, and/or weight based d osing when appropriate to reduce radiation dose to as low as reasonably achievable (ALARA). [facility]: Dose Right [facility]: CareDose [facility]: Dose Right [facility]: Teradose 4D [facility]: [employer] CONTRAST TYPE AND DOSE: contrast/concentration: Isovue 350.00 mg/ml; Total Contrast Delivered: 80.0 ml; Total Saline Delivered: 75.0 ml RENAL FUNCTION: Creatinine 1.1 LIMITATIONS: None. FINDINGS: [place]: The anterior, middle, posterior cerebral arteries are all patent. No ev idence of aneurysm or focal stenosis. POSTERIOR CIRCULATION: The distal vertebral arteries are patent as is the basilar artery. No aneurysm . BRAIN: No gross enhancing lesions as visualized. No infarction. No midline shift or mass effect. N o significant low-density lesions in the white matter. BONES: Intact as visualized. SINUSES: No fluid or mucosal thickening. OTHER: No other significant finding. IMPRESSION: NO CTA EVIDENCE OF STENOSIS OR ANEURYSM OF THE [place]. NO SIGNIFICANT INTRACR ANIAL IMAGING FINDINGS. TECHNICAL DOCUMENTATION: JOB ID: [id number] Quality ID # [id number]: Final reports with documentation of one or more dose reduction techniques (e.g., Au tomated exposure control, adjustment of the mA and/or kV according to patient size, use of iterative reconstruction technique) 2010 [employer]- All Rights Reserved Reading location - IP/workstation name: [email or web address]
--- NOTE | 2018-05-24 14:46 | RADIOLOGY REPORT (SQ) ---
EXAM DESCRIPTION: CTA NECK COMPLETED DATE/TIME: 05/24/2018 2:02 pm REASON FOR STUDY: R03.0 ELEVATED BLOOD-PRESSURE READING, W/O DIAGNOSIS OF HTN I10 ESSENTIAL ( I10 E SSENTIAL (PRIMARY) HYPERTENSION R03.0 ELEVATED BLOOD-PRESSURE READING, W/O DIAGNOSIS OF HTN COMPARISON: None. TECHNIQUE: Axial dynamic scanning technique with dynamic contrast enhancement through the extra-stagecraft teacher nial carotid and vertebral arteries. Multiplanar reconstruction. 3-D MIPS and Volume-rendered imag es acquired at the workstation and saved to PACS. Images are reviewed in soft tissue, bone, lung w indows. All CT scanners at this facility use dose modulation, iterative reconstruction, and/or weight based d osing when appropriate to reduce radiation dose to as low as reasonably achievable (ALARA). [facility]: Dose Right [facility]: CareDose [facility]: Dose Right [facility]: Teradose 4D [facility]: [employer] CONTRAST TYPE AND DOSE: 80 ML Omnipaque 350- low osmolar. RENAL FUNCTION: CREATININE 1.1 GFR 57 LIMITATIONS: None. FINDINGS: AORTIC ARCH: Normal three-vessel origin. Bilateral subclavian arteries are patent. No d issection. RIGHT CAROTIDS: Patent common, internal and external carotid arteries without suggestion of significa nt stenosis or irregular plaque. No dissection. RIGHT VERTEBRAL: Patent. No dissection. LEFT CAROTIDS: Patent common, internal and external carotid arteries without suggestion of significan t stenosis or irregular plaque. No dissection. LEFT VERTEBRAL: Patent. No dissection. OTHER: No other significant finding. OTHER: 3-D reconstructions confirm findings. IMPRESSION: NORMAL CTA OF THE EXTRA-CRANIAL CAROTID AND VERTEBRAL ARTERIES. COMMENT: Quality ID #[id number]: Measurements of distal internal carotid diameter were used as the denomina tor for stenosis measurement. TECHNICAL DOCUMENTATION: JOB ID: [id number] Quality ID # [id number]: Final reports with documentation of one or more dose reduction techniques (e.g., Au tomated exposure control, adjustment of the mA and/or kV according to patient size, use of iterative reconstruction technique) 2010 [employer]- All Rights Reserved Reading location - IP/workstation name: [email or web address]
== END ==
LOC: RAD 13:29
DX: I10 Essential (primary) hypertension (principal)
CPT/HCPCS: 70496; 70498; 82565

== ENCOUNTER → 2019-03-20 | Outpatient (CLI) | payer OTHER ==
--- NOTE | 2019-03-20 14:06 | RADIOLOGY REPORT (SQ) ---
EXAM DESCRIPTION: CHEST PA/LATERAL COMPLETED DATE/TIME: 03/20/2019 1:16 pm REASON FOR STUDY: LOUD SNORING, HTN, BEING EVALUATED COMPARISON: 08/15/2016 EXAM PARAMETERS: NUMBER OF VIEWS: two views TECHNIQUE: Digital Frontal and Lateral radiographic views of the chest acquired. RADIATION DOSE: NA LIMITATIONS: none FINDINGS: LUNGS AND PLEURA: No opacities, masses or pneumothorax. No pleural effusion. MEDIASTINUM AND HILAR STRUCTURES: No masses or contour abnormalities. HEART AND VASCULAR STRUCTURES: Heart normal size. No evidence for failure. BONES: No acute findings. HARDWARE: None in the chest. OTHER: No other significant finding. IMPRESSION: NO SIGNIFICANT RADIOGRAPHIC FINDING IN THE CHEST. TECHNICAL DOCUMENTATION: JOB ID: [id number] [employer]- All Rights Reserved Reading location - IP/workstation name: [email or web address]
== END ==
LOC: CCC 12:58
DX: R06.83 Snoring (principal); I10 Essential (primary) hypertension
CPT/HCPCS: 71046

== ENCOUNTER → 2019-03-25 | Outpatient (CLI) | payer OTHER ==
[2019-03-25 12:53] LABS: ABSOLUTE EOSINOPHILS # (AUTO) 0.2 10^3/uL (0.0-0.6); ABSOLUTE LYMPHOCYTES (AUTO) 1.8 10^3/uL (0.5-4.7); ABSOLUTE MONOCYTES (AUTO) 0.5 10^3/uL (0.1-1.4); ABSOLUTE NEUT (AUTO) 4.3 10^3/uL (1.7-8.2); BASOPHILS % (AUTO) 0.5 % (0-2); EOSINOPHILS % (AUTO) 3.6 % (0-6); HEMATOCRIT 34.5 % (36.0-47.0); HEMOGLOBIN 11.6 g/dL (12.0-15.5); LYMPHOCYTES % (AUTO) 26.6 % (13-45); MEAN CORPUSCULAR HGB CONC 33.7 g/dL (32.0-36.0); MEAN CORPUSCULAR VOLUME 86 fl (80-97); PLATELET COUNT 355 10^3/uL (150-450); RED BLOOD COUNT 4.02 10^6/uL (3.72-5.28); RED CELL DISTRIBUTION WIDTH 14.6 % (11.5-14.0); SEGMENTED NEUTROPHILS % (AUTO) 62.3 % (42-78); TOTAL CELLS COUNTED % (AUTO) 100 %; WHITE BLOOD COUNT 6.9 10^3/uL (4.0-10.5)
[2019-03-25 13:09] LABS: ALBUMIN 4.8 g/dL (3.5-5.0); ALKALINE PHOSPHATASE 59 U/L (38-126); ANION GAP 11 (5-19); ASPARTATE AMINO TRANSFERASE 30 U/L (14-36); BILIRUBIN,DIRECT 0.2 mg/dL (0.0-0.4); BILIRUBIN,TOTAL 0.5 mg/dL (0.2-1.3); BLOOD UREA NITROGEN 29 mg/dL (7-20); CALCIUM 10.4 mg/dL (8.4-10.2); CARBON DIOXIDE 29 mmol/L (22-30); CHLORIDE 98 mmol/L (98-107); CHOLESTEROL 238.08 mg/dL (0-200); GLUCOSE 133 mg/dL (75-110); POTASSIUM 4.4 mmol/L (3.6-5.0); TOTAL PROTEIN 7.8 g/dL (6.3-8.2); TRIGLYCERIDES 212 mg/dL (<150)
[2019-03-25 13:20] LABS: DIRECT LDL 152 mg/dL (<100)
[2019-03-25 13:22] LABS: VLDL CHOLESTEROL 42.4 mg/dL (10-31)
== END ==
LOC: CCC 11:32
DX: I10 Essential (primary) hypertension (principal); R73.03 Prediabetes; E78.5 Hyperlipidemia, unspecified
CPT/HCPCS: 36415; 80053; 80061; 83036; 84443; 85025

== ENCOUNTER 2019-05-02 19:20 | Emergency (ER) | payer OTHER ==
[2019-05-02] MEDS ORDERED: ASPIRIN 81 MG TABLET, CHEWABLE PO ONE (20:05)
--- NOTE | 2019-05-02 20:05 | ER Document Report ---
ED Medical Screen (RME) - General Chief Complaint: Chest Pain Stated Complaint: CHEST PAIN Time Seen by Provider: 05/02/19 20:04 Primary Care Provider: NEEMA JACOBO MD [Primary Care Provider] - Follow up as needed Mode of Arrival: Ambulatory Information source: Patient Notes: 54-year-old female presented to ED for complaint of chest pain for 2 to 3 weeks worse tonight. She has a history of blood pressure and cholesterol. Denies history of heart attacks. She states she has not had any cardiac cath as yet. She is alert oriented respirations regular nonlabored speaking in full sentences walks with a even steady gait. I have greeted and performed a rapid initial assessment of this patient. A comprehensive ED assessment and evaluation of the patient, analysis of test results and completion of medical decision making process will be conducted by an additional ED providers. TRAVEL OUTSIDE OF THE [place] IN LAST 30 DAYS: No - Related Data Allergies/Adverse Reactions: No Known Allergies Allergy (Verified 06/20/17 00:01) Past Medical History - Past Medical History Cardiac Medical History: Reports: Hx Hypercholesterolemia, Hx Hypertension Pulmonary Medical History: Denies: Hx COPD Endocrine Medical History: Denies: Hx Diabetes Mellitus Type 1, Hx Diabetes Mellitus Type 2 Renal/ Medical History: Denies: Hx Peritoneal Dialysis Psychiatric Medical History: Reports: Hx Anxiety, Hx Depression Past Surgical History: Reports: Hx Hysterectomy - Immunizations Hx Diphtheria, Pertussis, Tetanus Vaccination: Yes Physical Exam - Vital signs Vitals: Temp Pulse Resp BP Pulse Ox 98.1 F 80 18 154/80 H 99 05/02/19 19:50 05/02/19 19:50 05/02/19 19:50 05/02/19 19:50 05/02/19 19:50 Course - Vital Signs Vital signs: Temp Pulse Resp BP Pulse Ox 98.1 F 80 18 154/80 H 99 05/02/19 19:50 05/02/19 19:50 05/02/19 19:50 05/02/19 19:50 05/02/19 19:50 Doctor's Discharge - Discharge Referrals: NEEMA JACOBO MD [Primary Care Provider] - Follow up as needed
--- NOTE | 2019-05-02 20:50 | RADIOLOGY REPORT (SQ) ---
EXAM DESCRIPTION: XR CHEST 2 VIEWS COMPLETED DATE/TME: 05/02/2019 20:06 CLINICAL HISTORY: 54 years, Female, chest pain sob COMPARISON: Prior study from 08/15/2016 NUMBER OF VIEWS: Two TECHNIQUE: Frontal and lateral radiograph of the chest were obtained. LIMITATIONS: None. FINDINGS: Cardiac and mediastinal contours are normal in appearance. Lungs are clear. No pleural effusion or pneumothorax. IMPRESSION: No acute disease. copyright 2010 [employer]- All Rights Reserved
[2019-05-02 20:51] LABS: ABSOLUTE EOSINOPHILS # (AUTO) 0.3 10^3/uL (0.0-0.6); ABSOLUTE LYMPHOCYTES (AUTO) 2.4 10^3/uL (0.5-4.7); ABSOLUTE MONOCYTES (AUTO) 0.5 10^3/uL (0.1-1.4); ABSOLUTE NEUT (AUTO) 5.1 10^3/uL (1.7-8.2); BASOPHILS % (AUTO) 0.5 % (0-2); EOSINOPHILS % (AUTO) 3.9 % (0-6); HEMATOCRIT 33.7 % (36.0-47.0); HEMOGLOBIN 11.3 g/dL (12.0-15.5); LYMPHOCYTES % (AUTO) 28.9 % (13-45); MEAN CORPUSCULAR HEMOGLOBIN 28.7 pg (27.0-33.4); MEAN CORPUSCULAR HGB CONC 33.5 g/dL (32.0-36.0); MEAN CORPUSCULAR VOLUME 86 fl (80-97); MONOCYTES % (AUTO) 5.5 % (3-13); PLATELET COUNT 311 10^3/uL (150-450); RED BLOOD COUNT 3.94 10^6/uL (3.72-5.28); RED CELL DISTRIBUTION WIDTH 14.4 % (11.5-14.0); SEGMENTED NEUTROPHILS % (AUTO) 61.2 % (42-78); TOTAL CELLS COUNTED % (AUTO) 100 %; WHITE BLOOD COUNT 8.4 10^3/uL (4.0-10.5)
[2019-05-02 21:11] LABS: INTERNATIONAL RATION (INR) 0.96; PROTHROMBIN TIME 12.8 SEC (11.4-15.4)
[2019-05-02 21:12] LABS: PARTIAL THROMBOPLASTIN TIME 27.9 SEC (23.5-35.8)
[2019-05-02 21:13] LABS: ALBUMIN 4.5 g/dL (3.5-5.0); ALKALINE PHOSPHATASE 67 U/L (38-126); ANION GAP 12 (5-19); ASPARTATE AMINO TRANSFERASE 28 U/L (14-36); BILIRUBIN,DIRECT 0.1 mg/dL (0.0-0.4); BILIRUBIN,TOTAL 0.3 mg/dL (0.2-1.3); BLOOD UREA NITROGEN 30 mg/dL (7-20); CALCIUM 9.6 mg/dL (8.4-10.2); CARBON DIOXIDE 27 mmol/L (22-30); CHLORIDE 102 mmol/L (98-107); CREATINE KINASE 106 U/L (30-135); GLUCOSE 115 mg/dL (75-110); POTASSIUM 3.9 mmol/L (3.6-5.0); TOTAL PROTEIN 7.7 g/dL (6.3-8.2)
[2019-05-02 21:24] LABS: CREATINE KINASE MB 0.72 ng/mL (<4.55)
[2019-05-02 21:26] LABS: NT PRO BNP 120 pg/mL (5-900); TROPONIN I < 0.012 ng/mL
--- NOTE | 2019-05-03 00:28 | ER Document Report ---
ED General - General Chief Complaint: Chest Pain Stated Complaint: CHEST PAIN Time Seen by Provider: 05/02/19 20:04 Primary Care Provider: RIKI GAVIN MD [ACTIVE STAFF] - Follow up tomorrow Mode of Arrival: Ambulatory Notes: Patient is a 54-year-old female that comes to the emergency department for chief complaint of intermittent sensation of pressure over the left side of her chest and also intermittent episodes where she feels shortness of breath on exertion. This is been going on for over a month intermittently. She states it is unpredictable and there is nothing that specifically worsens or improves it. She denies any other symptoms, she denies current chest pain. Past medical history of hypertension, hyperlipidemia, anxiety/depression. She denies smoking or recreational drugs. She does report her brother had a heart attack, she states she has never had a stress test or cardiac catheterization. TRAVEL OUTSIDE OF THE [place] IN LAST 30 DAYS: No - Related Data Allergies/Adverse Reactions: No Known Allergies Allergy (Verified 06/20/17 00:01) Past Medical History - General Information source: Patient - Social History Smoking Status: Never Smoker Chew tobacco use (# tins/day): No Drug Abuse: None Family History: Reviewed & Not Pertinent, Hypertension Patient has suicidal ideation: No Patient has homicidal ideation: No - Past Medical History Cardiac Medical History: Reports: Hx Hypercholesterolemia, Hx Hypertension Pulmonary Medical History: Denies: Hx COPD Endocrine Medical History: Denies: Hx Diabetes Mellitus Type 1, Hx Diabetes Mellitus Type 2 Renal/ Medical History: Denies: Hx Peritoneal Dialysis Psychiatric Medical History: Reports: Hx Anxiety, Hx Depression Past Surgical History: Reports: Hx Hysterectomy - Immunizations Hx Diphtheria, Pertussis, Tetanus Vaccination: Yes Review of Systems - Review of Systems Constitutional: See HPI EENT: No symptoms reported Cardiovascular: See HPI Respiratory: See HPI Gastrointestinal: No symptoms reported Genitourinary: No symptoms reported Female Genitourinary: No symptoms reported Musculoskeletal: No symptoms reported Skin: No symptoms reported Hematologic/Lymphatic: No symptoms reported Neurological/Psychological: No symptoms reported Physical Exam - Vital signs Vitals: Temp Pulse Resp BP Pulse Ox 98.1 F 80 18 154/80 H 99 05/02/19 19:50 05/02/19 19:50 05/02/19 19:50 05/02/19 19:50 05/02/19 19:50 - Notes Notes: GENERAL: Alert, interacts well. No acute distress. HEAD: Normocephalic, atraumatic. EYES: Pupils equal, round, and reactive to light. Extraocular movements intact. ENT: Oral mucosa moist, tongue midline. Oropharynx unremarkable. Airway patent. NECK: Full range of motion. Supple. Trachea midline. LUNGS: Clear to auscultation bilaterally, no wheezes, rales, or rhonchi. No respiratory distress. HEART: Regular rate and rhythm. No murmur ABDOMEN: Soft, non-tender. Non-distended. Bowel sounds present in all 4 quadrants. GENITOURINARY: Deferred EXTREMITIES: Moves all 4 extremities spontaneously. No edema, normal radial and dorsalis pedis pulses bilaterally. No cyanosis. BACK: no cervical, thoracic, lumbar midline tenderness. No saddle anesthesia, normal distal neurovascular exam. Moves all extremities in full range of motion. NEUROLOGICAL: Alert and oriented x3. Normal speech. Cranial nerves II through XII grossly intact. PSYCH: Smiling, conversational, well-appearing SKIN: Warm, dry, normal turgor. No rashes or lesions noted. Course - Re-evaluation Re-evalutation: Based on patient's age and risk factors her heart score is 3. EKG negative, initial troponin negative despite symptoms reportedly going on for a month. D- dimer is negative. Chest x-ray unremarkable. CBC and chemistry unremarkable. I discussed with patient. She states she sleeps very poorly, I suspect this is the cause of her ongoing tiredness. She does report that she probably has sleep apnea, this is likely based on her body habitus. I did discuss this, she already has follow-up and testing scheduled for this. She states she is ready to leave. I feel this is appropriate based on her heart score, nonspecific symptoms, negative work-up, and she does agree to perform very close follow-up with cardiology for stress testing. I did discuss strict return precautions. Patient states agreement and satisfaction. Stable at time of discharge. - Vital Signs Vital signs: Temp Pulse Resp BP Pulse Ox 97.8 F 80 14 131/69 H 96 05/03/19 02:18 05/02/19 19:50 05/03/19 02:01 05/03/19 02:01 05/03/19 02:01 - Laboratory Result Diagrams: 05/02/19 20:30 10/24/19 20:30 Laboratory results interpreted by me: 05/02/19 05/02/19 20:30 20:30 Hgb 11.3 L Hct 33.7 L RDW 14.4 H BUN 30 H Creatinine 1.28 H Est GFR ( Amer) 52 L Est GFR (MDRD) Non-Af 43 L Glucose 115 H Magnesium 1.5 L Discharge - Discharge Clinical Impression: Chest discomfort, Shortness of breath, Tiredness Condition: Stable Disposition: HOME, SELF-CARE Additional Instructions: Your work-up at this time is reassuring. However I recommend that you follow-up closely with the cardiology referral for additional management including stress testing. Call tomorrow for the close follow-up. Follow-up with your primary care additionally discussed management of your sleep apnea. This should help with your general tiredness. Return if you worsen including developing pain, difficulty breathing, passing out, fever, or any other concerning symptoms. Referrals: RIKI GAVIN MD [ACTIVE STAFF] - Follow up tomorrow
[2019-05-03 02:12] VITALS: BP 131/69
--- NOTE | 2019-05-04 12:58 | EKG REPORT ---
SEVERITY:- NORMAL ECG - SINUS RHYTHM : Confirmed by: Snow Santana MD 04-May-2019 12:58:07
== END 2019-05-03 02:19 | disposition home or self-care (01) ==
LOC: ER 19:20
DX: R07.9 Chest pain, unspecified (principal); R06.02 Shortness of breath; R53.83 Other fatigue; E78.00 Pure hypercholesterolemia, unspecified; I10 Essential (primary) hypertension; Z90.710 Acquired absence of both cervix and uterus
CPT/HCPCS: 36415; 71046; 80053; 82550; 82553; 83735; 83880; 84443; 84484; 85025; 85379; 85610; 85730; 93005; 93010; 99285

== ENCOUNTER 2019-05-30 17:58 | Emergency (ER) | payer OTHER ==
[2019-05-30] MEDS ORDERED: DEXAMETHASONE CONC 1 MG/ML SOLN PO ONE (19:19)
[2019-05-30] MEDS ORDERED: KETOROLAC TROMETHAMINE 60 MG/2 ML SDV IM ONE (19:20)
--- NOTE | 2019-05-30 19:22 | ER Document Report ---
ED ENT - General Chief Complaint: Sore Throat Stated Complaint: SORE THROAT, SWELLING, NECK PAIN Time Seen by Provider: 05/30/19 19:17 Primary Care Provider: NEEMA JACOBO MD [Primary Care Provider] - Follow up in 1 week TRAVEL OUTSIDE OF THE [place] IN LAST 30 DAYS: No - HPI Notes: 54-year-old female to the emergency department with 3 days of sore throat, painful swallowing, subjective fevers. She states that she has 2 grandchildren that are recently diagnosed with strep throat. She states that she has pain radiating to her ears. She states that she does not have a cough. She states that she has been taking ibuprofen without a lot of relief. She states that she has not been drooling or short of breath. - Related Data Allergies/Adverse Reactions: No Known Allergies Allergy (Verified 05/30/19 19:18) Past Medical History - General Information source: Patient - Social History Smoking Status: Never Smoker Frequency of alcohol use: None Drug Abuse: None Lives with: Family Family History: Reviewed & Not Pertinent, Hypertension - Past Medical History Cardiac Medical History: Reports: Hx Hypercholesterolemia, Hx Hypertension Pulmonary Medical History: Denies: Hx COPD Endocrine Medical History: Denies: Hx Diabetes Mellitus Type 1, Hx Diabetes Mellitus Type 2 Renal/ Medical History: Denies: Hx Peritoneal Dialysis Psychiatric Medical History: Reports: Hx Anxiety, Hx Depression Past Surgical History: Reports: Hx Hysterectomy - Immunizations Hx Diphtheria, Pertussis, Tetanus Vaccination: Yes Review of Systems - Review of Systems Constitutional: Fever, Malaise. denies: Chills EENT: See HPI, Ear pain, Throat pain, Difficulty swallowing Cardiovascular: denies: Chest pain, Palpitations, Syncope, Dizziness, Lightheaded Respiratory: denies: Cough, Short of breath Gastrointestinal: denies: Abdominal pain, Diarrhea, Nausea, Vomiting Genitourinary: denies: Dysuria, Discharge Female Genitourinary: No symptoms reported Musculoskeletal: No symptoms reported Skin: No symptoms reported Hematologic/Lymphatic: No symptoms reported Neurological/Psychological: No symptoms reported -: Yes All other systems reviewed and negative Physical Exam - Vital signs Vitals: Temp Pulse Resp BP Pulse Ox 98.0 F 87 20 125/56 L 98 05/30/19 18:54 05/30/19 18:54 05/30/19 18:54 05/30/19 18:54 05/30/19 18:54 Interpretation: Normal - General General appearance: Appears well, Alert In distress: None - HEENT Head: Normocephalic, Atraumatic Eyes: Normal Cornea: Normal Pupils: PERRL Ears: Normal External canal: Normal Tympanic membrane: Normal Sinus: Normal Nasal: Normal Mouth/Lips: Normal. No: Angioedema Pharynx: Erythema, Exudate, Tonsillar hypertrophy. No: Peritonsillar abscess, Post nasal drainage, Retropharyngeal abscess, Uvular edema - no don's angina Neck: Normal, Lymphadenopathy - + anterior lymphadenopathy. No: Meningismus - Respiratory Respiratory status: No respiratory distress Chest status: Nontender. No: Accessory muscle use Breath sounds: Normal. No: Rales, Rhonchi, Wheezing Chest palpation: Normal - Cardiovascular Rhythm: Regular Heart sounds: Normal auscultation Murmur: No - Abdominal Inspection: Normal Distension: No distension Bowel sounds: Normal Tenderness: Nontender Organomegaly: No organomegaly - Back Back: Normal, Nontender - Neurological Neuro grossly intact: Yes Cognition: Normal Orientation: AAOx4 Mauro Coma Scale Eye Opening: Spontaneous Marsing Coma Scale Verbal: Oriented Mauro Coma Scale Motor: Obeys Commands Mauro Coma Scale Total: 15 Speech: Normal Cranial nerves: Normal Cerebellar coordination: Normal Motor strength normal: LUE, RUE, LLE, RLE Additional motor exam normals: Equal advisory application developer. No: Pronator drift Sensory: Normal - Psychological Associated symptoms: Normal affect, Normal mood - Skin Skin Temperature: Warm Skin Moisture: Dry Skin Color: Normal Course - Re-evaluation Re-evalutation: 05/30/19 Noted negative rapid strep but given exam, high suspicion for a bacterial cause of sore throat -- will start on Azithromycin 500 mg and await throat culture. pt agrees with the plan. Airway grossly patent. Encouraged to return if drooling, throat swelling, SOB. Patient agrees. - Vital Signs Vital signs: Temp Pulse Resp BP Pulse Ox 98.0 F 87 20 125/56 L 98 05/30/19 18:54 05/30/19 18:54 05/30/19 18:54 05/30/19 18:54 05/30/19 18:54 Discharge - Discharge Clinical Impression: Acute tonsillitis Qualifiers: Pharyngitis/tonsillitis etiology: unspecified etiology Qualified Code(s): J03.90 - Acute tonsillitis, unspecified Condition: Stable Disposition: HOME, SELF-CARE Instructions: Tonsillitis ([facility]) Additional Instructions: PUSH FLUIDS. RETURN IF WORSENING PAIN OR SYMPTOMS. COMPLETE ANTIBIOTICS. PCP FOLLOW UP Prescriptions: Azithromycin 500 mg PO DAILY #4 tablet Naproxen [Naprosyn] 500 mg PO BID #20 tablet Referrals: NEEMA JACOBO MD [Primary Care Provider] - Follow up in 1 week
[2019-05-30] MEDS ORDERED: AZITHROMYCIN 250 MG TABLET PO ONE (20:13)
[2019-05-30 20:50] VITALS: BP 128/60
== END 2019-05-30 20:45 | disposition home or self-care (01) ==
LOC: ER 17:58
DX: J03.90 Acute tonsillitis, unspecified (principal); H92.09 Otalgia, unspecified ear; R13.10 Dysphagia, unspecified; R50.9 Fever, unspecified; R53.81 Other malaise; I10 Essential (primary) hypertension; Z20.818 Contact with and (suspected) exposure to other bacterial communicable diseases
CPT/HCPCS: 99283; 96372; 87070; 87880; 87077; J1885; J8540

== ENCOUNTER → 2019-06-11 | Outpatient (CLI) | payer OTHER ==
[2019-06-11 12:51] LABS: ANION GAP 13 (5-19); BLOOD UREA NITROGEN 27 mg/dL (7-20); CALCIUM 9.6 mg/dL (8.4-10.2); CARBON DIOXIDE 27 mmol/L (22-30); CHLORIDE 99 mmol/L (98-107); GLUCOSE 184 mg/dL (75-110); PHOSPHORUS 3.7 mg/dL (2.5-4.5); POTASSIUM 4.3 mmol/L (3.6-5.0)
== END ==
LOC: CCC 11:33
DX: N18.3 Chronic kidney disease, stage 3 (moderate) (principal)
CPT/HCPCS: 36415; 80048; 83735; 84100; 84156

== ENCOUNTER → 2019-06-12 | Outpatient (CLI) | payer OTHER ==
[~2019-06-12] MED LIST: REGADENOSON INJ 0.4 MG/5 ML DISP.SYRIN IV ONE
== END ==
LOC: RAD 07:19
PROVIDERS: ATTEND Internal Medicine
DX: R07.89 Other chest pain (principal); I10 Essential (primary) hypertension
CPT/HCPCS: 93017; 78452; A9500; J2785; Q9969

== ENCOUNTER → 2019-06-19 | Outpatient (CLI) | payer OTHER ==
--- NOTE | 2019-06-20 13:32 | Pulmonary Function Test ---
Pulmonary Function Test Date of Procedure:: 06/19/19 INDICATION:: Dyspnea Referring Provider: Dr. Kaba Floor Coverer: Anna Wallace LOCKER ROOM SUPERVISOR - Report Spirometry: Spirometry: pre-FVC: 4.10 L 123% pre-FEV:1 3.52 L 130% pre-FEV1/FVC %: 86 predicted: 83 [id number]%: 3.91 L 133% Impression: Normal spirometry: No obstructive defect
== END ==
LOC: RT 08:53
PROVIDERS: ATTEND Internal Medicine
DX: R06.83 Snoring (principal); R40.0 Somnolence; I10 Essential (primary) hypertension; E78.5 Hyperlipidemia, unspecified; E66.9 Obesity, unspecified
CPT/HCPCS: 94010

== ENCOUNTER → 2019-07-17 | Outpatient (CLI) | payer OTHER ==
[2019-07-17 12:57] LABS: ANION GAP 16 (5-19); BLOOD UREA NITROGEN 43 mg/dL (7-20); CALCIUM 10.2 mg/dL (8.4-10.2); CARBON DIOXIDE 26 mmol/L (22-30); CHLORIDE 96 mmol/L (98-107); GLUCOSE 132 mg/dL (75-110); POTASSIUM 4.7 mmol/L (3.6-5.0)
== END ==
LOC: CCC 11:23
DX: E11.8 Type 2 diabetes mellitus with unspecified complications (principal); N18.3 Chronic kidney disease, stage 3 (moderate)
CPT/HCPCS: 36415; 80048

== ENCOUNTER 2019-07-23 11:16 | Emergency (ER) | payer SELFPAY ==
--- NOTE | 2019-07-23 12:06 | ER Document Report ---
ED Medical Screen (RME) - General Chief Complaint: Blood Pressure Problem Stated Complaint: BLOOD PRESSURE PROBLEMS Time Seen by Provider: 07/23/19 11:58 Primary Care Provider: CIRO WELCH [Primary Care Provider] - Follow up as needed TRAVEL OUTSIDE OF THE [place] IN LAST 30 DAYS: No - HPI Notes: 07/23/19 12:02 Patient is a 54-year-old female with a history of chronic kidney disease and hypertension who presents from the business continuity management director's office for being orthostatic positive after having intermittent dizziness and diarrhea since yesterday. He states that he is sending her here for fluids and rehydration. He otherwise was following up with her for a recent stress test and CT angiogram of the heart. He states that her ejection fraction is normal, negative stress test, and "she has a perfect heart." She has no other concerns or complaints. No no chest pain, shortness breath, abdominal pain, headache, fever. I have treated and performed a rapid initial assessment of this patient. A comprehensive ED assessment and evaluation of the patient, analysis of test results and completion of medical decision making process will be conducted by additional ED providers. PHYSICAL EXAMINATION: GENERAL: Well-appearing, well-nourished and in no acute distress. A&Ox4. Answers questions appropriately. Heart: RRR Abdomen: Limited exam, grossly nontender Neuro: Cranial nerves grossly intact. No focal deficits noted. [facility]: #[phone] (cell phone of doc) Past Medical History - Social History Chew tobacco use (# tins/day): No Frequency of alcohol use: None Drug Abuse: None - Past Medical History Cardiac Medical History: Reports: Hx Hypercholesterolemia, Hx Hypertension Pulmonary Medical History: Denies: Hx COPD Endocrine Medical History: Denies: Hx Diabetes Mellitus Type 1, Hx Diabetes Mellitus Type 2 Renal/ Medical History: Denies: Hx Peritoneal Dialysis Psychiatric Medical History: Reports: Hx Anxiety, Hx Depression Past Surgical History: Reports: Hx Hysterectomy - Immunizations Hx Diphtheria, Pertussis, Tetanus Vaccination: Yes Doctor's Discharge - Discharge Referrals: CIRO WELCH [Primary Care Provider] - Follow up as needed
[2019-07-23 12:59] LABS: ABSOLUTE EOSINOPHILS # (AUTO) 0.1 10^3/uL (0.0-0.6); ABSOLUTE LYMPHOCYTES (AUTO) 1.1 10^3/uL (0.5-4.7); ABSOLUTE MONOCYTES (AUTO) 0.4 10^3/uL (0.1-1.4); ABSOLUTE NEUT (AUTO) 3.2 10^3/uL (1.7-8.2); BASOPHILS % (AUTO) 0.5 % (0-2); EOSINOPHILS % (AUTO) 2.6 % (0-6); HEMATOCRIT 32.9 % (36.0-47.0); HEMOGLOBIN 11.1 g/dL (12.0-15.5); LYMPHOCYTES % (AUTO) 22.6 % (13-45); MEAN CORPUSCULAR HEMOGLOBIN 28.9 pg (27.0-33.4); MEAN CORPUSCULAR HGB CONC 33.7 g/dL (32.0-36.0); MEAN CORPUSCULAR VOLUME 86 fl (80-97); PLATELET COUNT 278 10^3/uL (150-450); RED BLOOD COUNT 3.84 10^6/uL (3.72-5.28); RED CELL DISTRIBUTION WIDTH 14.2 % (11.5-14.0); SEGMENTED NEUTROPHILS % (AUTO) 65.3 % (42-78); TOTAL CELLS COUNTED % (AUTO) 100 %; WHITE BLOOD COUNT 4.8 10^3/uL (4.0-10.5)
[2019-07-23] MEDS: NORMAL SALINE 1000 ML 1,000 ML IV PRN ×2 (13:07→14:34)
[2019-07-23 13:24] LABS: ALBUMIN 4.6 g/dL (3.5-5.0); ALKALINE PHOSPHATASE 56 U/L (38-126); ANION GAP 15 (5-19); ASPARTATE AMINO TRANSFERASE 33 U/L (14-36); BILIRUBIN,DIRECT 0.3 mg/dL (0.0-0.4); BILIRUBIN,TOTAL 0.8 mg/dL (0.2-1.3); BLOOD UREA NITROGEN 32 mg/dL (7-20); CALCIUM 9.4 mg/dL (8.4-10.2); CARBON DIOXIDE 26 mmol/L (22-30); CHLORIDE 98 mmol/L (98-107); POTASSIUM 3.5 mmol/L (3.6-5.0)
[2019-07-23 13:27] LABS: GLUCOSE 65 mg/dL (75-110)
--- NOTE | 2019-07-23 13:57 | ER Document Report ---
ED General - General Chief Complaint: Blood Pressure Problem Stated Complaint: BLOOD PRESSURE PROBLEMS Time Seen by Provider: 07/23/19 11:58 Primary Care Provider: [facility] [NO LOCAL MD] - Follow up as needed Notes: CHIEF COMPLAINT: Low blood pressure today HPI: 54-year-old female with history of diabetes, chronic kidney disease sent in by her medical office administrator today for evaluation of hypotension. Patient states she had presented for a scheduled visit with her medical office administrator to follow-up on stress test results which she states were normal. Patient states that over the last 1 to 2 months when she goes from a sitting or lying to standing position she does get lightheaded. No chest pain. No shortness of breath. No loss of consciousness. No abdominal pain. Patient states yesterday she did have 1-2 episodes of loose watery stools but today has no diarrhea, no abdominal pain. Had no fever no dysuria. No chest pain no shortness of breath. Patient states that when she was at the cardiology office they checked her blood pressure on standing and states that it was in the 70s. Patient states she was then referred over to the emergency department for rehydration. ROS: See HPI - all other systems were reviewed and are otherwise negative Constitutional: no fever Eyes: no drainage, no blurred vision ENT: no runny nose, no sore throat Cardiovascular: no chest pain Resp: no SOB, no cough GI: no vomiting, + diarrhea yesterday, no abdominal pain : no dysuria Integumentary: no rash Allergy: no hives Musculoskeletal: no extremity pain or swelling Neurological: no numbness/tingling, no weakness, + dizziness with standing MEDICATIONS: I agree with the patient medications as charted by the RN. ALLERGIES: I agree with the allergies as charted by the RN. PAST MEDICAL HISTORY/PAST SURGICAL HISTORY: Reviewed and agree as charted by RN. SOCIAL HISTORY: Reviewed and agree as charted by RN. FAMILY HISTORY: No significant familial comorbid conditions directly related to patient complaint EXAM: Reviewed vital signs as charted by RN. CONSTITUTIONAL: Alert and oriented and responds appropriately to questions. Well-appearing; well-nourished HEAD: Normocephalic; atraumatic EYES: PERRL; Conjunctivae clear, sclerae non-icteric ENT: normal nose; no rhinorrhea; moist mucous membranes; pharynx without lesions noted, no uvula edema or deviation, no tonsillar hypertrophy, phonation normal NECK: Supple without meningismus; non-tender; no cervical lymphadenopathy, no masses CARD: RRR; no murmurs, no clicks, no rubs, no gallops; symmetric distal pulses RESP: Normal chest excursion without splinting or tachypnea; breath sounds clear and equal bilaterally; no wheezes, no rhonchi, no rales, pulse oximetry 98% on room air not hypoxic ABD/GI: Normal bowel sounds; non-distended; soft, non-tender, no rebound, no guarding; no palpable organomegaly or masses. BACK: The back appears normal and is non-tender to palpation, there is no CVA tenderness EXT: Normal ROM in all joints; non-tender to palpation; no cyanosis, no effusions, no edema SKIN: Normal color for age and race; warm; dry; good turgor; no acute lesions noted NEURO: Moves all extremities equally; Motor and sensory function intact PSYCH: The patient's mood and manner are appropriate. Grooming and personal hygiene are appropriate. MDM: 54-year-old female with history of chronic kidney disease presenting for evaluation of possible orthostatic hypotension. Patient initial screening blood pressure in triage was not hypotensive. At the time of my initial exam she had received 1 L of IV fluids to the triage process. I stood the patient up she did not have any subjective dizziness. Awaiting nursing to obtain orthostatics. Initial screening labs were ordered from triage, I do notice that the patient's creatinine is 2.7 which is elevated over the last week from her last creatinine of 1.67. Patient states that she is on 3 different blood pressure medications, several weeks ago her primary care provider decreased her metoprolol to half the dose because her blood pressure was so improved. I suspect that given the patient's renal function it is likely that her blood pressure medications are contributing to her orthostatic hypotension issues. Patient did take HCTZ and losartan this morning. TRAVEL OUTSIDE OF THE [place] IN LAST 30 DAYS: No - Related Data Allergies/Adverse Reactions: No Known Allergies Allergy (Unverified 07/23/19 12:02) Past Medical History - Social History Smoking Status: Never Smoker Chew tobacco use (# tins/day): No Frequency of alcohol use: None Drug Abuse: None Family History: Reviewed & Not Pertinent, Hypertension Patient has suicidal ideation: No Patient has homicidal ideation: No - Past Medical History Cardiac Medical History: Reports: Hx Hypercholesterolemia, Hx Hypertension Pulmonary Medical History: Denies: Hx COPD Endocrine Medical History: Reports: Hx Diabetes Mellitus Type 2. Denies: Hx Diabetes Mellitus Type 1 Renal/ Medical History: Denies: Hx Peritoneal Dialysis Psychiatric Medical History: Reports: Hx Anxiety, Hx Depression Past Surgical History: Reports: Hx Hysterectomy - Immunizations Hx Diphtheria, Pertussis, Tetanus Vaccination: Yes Physical Exam - Vital signs Vitals: Temp Pulse Resp BP Pulse Ox 98 F 72 18 117/65 100 07/23/19 12:03 07/23/19 12:03 07/23/19 12:03 07/23/19 12:03 07/23/19 12:03 Course - Re-evaluation Re-evalutation: 07/23/19 15:15 I discussed the evaluation results at length with the patient. Also discussed with attending Dr. Wilkerson. Patient likely has hypotension from worsened renal function in combination with staying on the normal dosing of her blood pressure medications. Patient has almost finished her second liter of normal saline states that she feels well. Will have nursing ambulate patient to assess for recurrent dizziness. Patient will likely need to follow-up with her PCP tomorrow to obtain nephrology referral. I will also refer patient to our on- call mortising machine operator. Patient is to have her PCP redraw creatinine level in 1 week. She is to hold her HCTZ but continue her losartan and metoprolol. - Vital Signs Vital signs: Temp Pulse Resp BP Pulse Ox 98 F 65 18 95/52 L 100 07/23/19 12:03 07/23/19 14:25 07/23/19 12:03 07/23/19 14:28 07/23/19 14:25 - Laboratory Result Diagrams: 07/23/19 12:50 07/23/19 12:50 Laboratory results interpreted by me: 07/23/19 07/23/19 12:50 12:50 Hgb 11.1 L Hct 32.9 L RDW 14.2 H Potassium 3.5 L BUN 32 H Creatinine 2.70 H Est GFR ( Amer) 22 L Est GFR (MDRD) Non-Af 18 L Glucose 65 L Discharge - Discharge Clinical Impression: Chronic renal failure Qualifiers: Chronic kidney disease stage: stage 3 (moderate) Qualified Code(s): N18.3 - Chronic kidney disease, stage 3 (moderate) Hypotension Qualifiers: Hypotension type: orthostatic hypotension Qualified Code(s): I95.1 - Orthostatic hypotension Condition: Stable Disposition: HOME, SELF-CARE Additional Instructions: Follow-up with your primary care provider tomorrow for further evaluation. Your creatinine today was 2.7, last week it was 1.67. Your low blood pressure is likely a result of the blood pressure medications you are taking in conjunction with your worsening kidney function. Hold your hydrochlorothiazide, continue the losartan and metoprolol. Discussed this at length with your primary care provider. Avoid anti-inflammatories. Hydrate well at home. You are also being referred to nephrology for further evaluation of your poor kidney function. Referrals: [facility] [NO LOCAL MD] - Follow up as needed Mojgan SMITH MD [ACTIVE STAFF] - Follow up as needed
[2019-07-23 15:06] LABS: APPEARANCE,URINE SLIGHTLY-CLOUDY; BILIRUBIN,URINE NEGATIVE (NEGATIVE); COLOR,URINE YELLOW; GLUCOSE, URINE NEGATIVE (NEGATIVE); KETONES,URINE NEGATIVE (NEGATIVE); PROTEIN,URINE NEGATIVE (NEGATIVE); URINE SPECIFIC GRAVITY 1.005; UROBILINOGEN,URINE NEGATIVE mg/dL (<2.0)
[2019-07-23 16:20] VITALS: BP 101/76
--- NOTE | 2019-07-23 21:26 | EKG REPORT ---
SEVERITY:- NORMAL ECG - SINUS RHYTHM : Confirmed by: Snow Santana MD 23-Jul-2019 21:25:42
--- NOTE | 2019-07-23 21:27 | EKG REPORT ---
SEVERITY:- NORMAL ECG - SINUS RHYTHM : Confirmed by: Snow Santana MD 23-Jul-2019 21:26:12
== END 2019-07-23 16:20 | disposition home or self-care (01) ==
LOC: ER 11:16
DX: I95.1 Orthostatic hypotension (principal); I12.9 Hypertensive chronic kidney disease with stage 1 through stage 4 chronic kidney disease, or unspecified chronic kidney disease; E11.22 Type 2 diabetes mellitus with diabetic chronic kidney disease; N18.3 Chronic kidney disease, stage 3 (moderate); Z79.899 Other long term (current) drug therapy
CPT/HCPCS: 93005; 99284; 96360; 96361; 36415; 83690; 83735; 84443; 85025; 80053; 81001; 93010; J7030

== ENCOUNTER → 2019-08-01 | Outpatient (CLI) | payer OTHER ==
[2019-08-01 13:59] LABS: ANION GAP 12 (5-19); BLOOD UREA NITROGEN 19 mg/dL (7-20); CARBON DIOXIDE 26 mmol/L (22-30); CHLORIDE 102 mmol/L (98-107); GLUCOSE 117 mg/dL (75-110); POTASSIUM 5.1 mmol/L (3.6-5.0)
== END ==
LOC: CCC 12:43
DX: I12.9 Hypertensive chronic kidney disease with stage 1 through stage 4 chronic kidney disease, or unspecified chronic kidney disease (principal); N18.3 Chronic kidney disease, stage 3 (moderate)
CPT/HCPCS: 36415; 80048

== ENCOUNTER → 2019-08-20 | Outpatient (CLI) | payer OTHER ==
[2019-08-20 11:50] LABS: ANION GAP 14 (5-19); BLOOD UREA NITROGEN 24 mg/dL (7-20); CARBON DIOXIDE 24 mmol/L (22-30); CHLORIDE 103 mmol/L (98-107); GLUCOSE 86 mg/dL (75-110); POTASSIUM 4.9 mmol/L (3.6-5.0)
== END ==
LOC: OD 10:52
DX: N18.3 Chronic kidney disease, stage 3 (moderate) (principal); E87.5 Hyperkalemia
CPT/HCPCS: 36415; 80048

== ENCOUNTER → 2020-01-23 | Outpatient (CLI) | payer OTHER ==
--- NOTE | 2020-01-23 14:40 | RADIOLOGY REPORT (SQ) ---
EXAM DESCRIPTION: KNEE BILAT AP UPRIGHT IMAGES COMPLETED DATE/TIME: 01/23/2020 2:29 pm REASON FOR STUDY: BILATERAL PRIMARY OSTEOARTHRITIS OF KNEE M25.562 PAIN IN LEFT KNEE M25.561 PAIN IN RIGHT KNEE M17.0 BILATERAL PRIMARY OSTEOARTHRITIS OF KNEE COMPARISON: None. NUMBER OF VIEWS: One view. TECHNIQUE: AP standing bilateral knees. LIMITATIONS: None. FINDINGS: MINERALIZATION: Normal. RIGHT KNEE BONES: No acute fracture. No worrisome bone lesions. MEDIAL COMPARTMENT: Small osteophytes. Mild joint space narrowing. No chondrocalcinosis. LATERAL COMPARTMENT: No significant osteophytes. No joint space narrowing. No chondrocalcinosis. LEFT KNEE BONES: No acute fracture. No worrisome bone lesions. MEDIAL COMPARTMENT: Small osteophytes. Mild joint space narrowing. No chondrocalcinosis. LATERAL COMPARTMENT: No significant osteophytes. No joint space narrowing. No chondrocalcinosis. IMPRESSION: MILD MEDIAL JOINT SPACE NARROWING WITH SMALL OSTEOPHYTES IN BOTH KNEES. TECHNICAL DOCUMENTATION: JOB ID: [id number] 2010 [employer]- All Rights Reserved Reading location - IP/workstation name: [email or web address]
== END ==
LOC: CCC 14:07
PROVIDERS: ATTEND Internal Medicine
DX: M17.0 Bilateral primary osteoarthritis of knee (principal); M25.562 Pain in left knee; M25.561 Pain in right knee
CPT/HCPCS: 73565

== ENCOUNTER → 2020-03-17 | Outpatient (CLI) | payer OTHER ==
[2020-03-17 14:55] LABS: ABSOLUTE EOSINOPHILS # (AUTO) 0.2 10^3/uL (0.0-0.6); ABSOLUTE LYMPHOCYTES (AUTO) 1.5 10^3/uL (0.5-4.7); ABSOLUTE MONOCYTES (AUTO) 0.3 10^3/uL (0.1-1.4); ABSOLUTE NEUT (AUTO) 4.3 10^3/uL (1.7-8.2); BASOPHILS % (AUTO) 0.4 % (0-2); EOSINOPHILS % (AUTO) 2.7 % (0-6); HEMATOCRIT 35.6 % (36.0-47.0); HEMOGLOBIN 12.2 g/dL (12.0-15.5); LYMPHOCYTES % (AUTO) 23.6 % (13-45); MEAN CORPUSCULAR HEMOGLOBIN 29.2 pg (27.0-33.4); MEAN CORPUSCULAR HGB CONC 34.3 g/dL (32.0-36.0); MEAN CORPUSCULAR VOLUME 85 fl (80-97); MONOCYTES % (AUTO) 5.5 % (3-13); PLATELET COUNT 321 10^3/uL (150-450); RED BLOOD COUNT 4.18 10^6/uL (3.72-5.28); RED CELL DISTRIBUTION WIDTH 14.7 % (11.5-14.0); SEGMENTED NEUTROPHILS % (AUTO) 67.8 % (42-78); TOTAL CELLS COUNTED % (AUTO) 100 %; WHITE BLOOD COUNT 6.3 10^3/uL (4.0-10.5)
[2020-03-17 15:00] LABS: APPEARANCE,URINE SLIGHTLY-CLOUDY; BILIRUBIN,URINE NEGATIVE (NEGATIVE); COLOR,URINE YELLOW; GLUCOSE, URINE NEGATIVE (NEGATIVE); KETONES,URINE NEGATIVE (NEGATIVE); LEUKOCYTE ESTERASE,URINE TRACE (NEGATIVE); NITRITE,URINE NEGATIVE (NEGATIVE); PROTEIN,URINE 30 mg/dL (NEGATIVE); URINE SPECIFIC GRAVITY 1.019; UROBILINOGEN,URINE NEGATIVE mg/dL (<2.0)
[2020-03-17 15:12] LABS: ALBUMIN 4.7 g/dL (3.5-5.0); ALKALINE PHOSPHATASE 65 U/L (38-126); ANION GAP 14 (5-19); ASPARTATE AMINO TRANSFERASE 35 U/L (14-36); CARBON DIOXIDE 23 mmol/L (22-30); CHLORIDE 101 mmol/L (98-107); GLUCOSE 139 mg/dL (75-110); POTASSIUM 4.2 mmol/L (3.6-5.0)
[2020-03-17 15:14] LABS: BILIRUBIN,DIRECT 0.3 mg/dL (0.0-0.4); BILIRUBIN,TOTAL 0.7 mg/dL (0.2-1.3); BLOOD UREA NITROGEN 22 mg/dL (7-20); CALCIUM 9.8 mg/dL (8.4-10.2); PHOSPHORUS 4.8 mg/dL (2.5-4.5); TOTAL PROTEIN 7.5 g/dL (6.3-8.2); TRIGLYCERIDES 255 mg/dL (<150)
[2020-03-17 15:25] LABS: DIRECT LDL 113 mg/dL (<100)
== END ==
LOC: CCC 13:46
PROVIDERS: ATTEND Internal Medicine
DX: E11.8 Type 2 diabetes mellitus with unspecified complications (principal); E78.49 Other hyperlipidemia; E11.22 Type 2 diabetes mellitus with diabetic chronic kidney disease; N18.1 Chronic kidney disease, stage 1
CPT/HCPCS: 36415; 80053; 80061; 81001; 82306; 83036; 83735; 84100; 84443; 85025

== ENCOUNTER 2020-06-25 17:21 | Emergency (ER) | payer SELFPAY ==
--- NOTE | 2020-06-25 18:30 | ER Document Report ---
ED Medical Screen (RME) - General Chief Complaint: Cough Stated Complaint: COUGH,SHORT OF BREATH Time Seen by Provider: 06/25/20 18:21 Primary Care Provider: [facility] [Primary Care Provider] - Follow up as needed TRAVEL OUTSIDE OF THE [place] IN LAST 30 DAYS: No - HPI Notes: 06/25/20 18:27 55-year-old female presents to ED for evaluation of increasing left-sided chest pain. Patient reports she is being evaluated for possible COPD. Patient states that she had blood work done however does not have the results back yet. Notes increasing pain on the left side with deep inspiration. Denies trauma or injury. Also reports that is tender to palpation. Patient notes that she has not had any sick contacts. She has been tested negative for Covid within the last month. Notes that the pain does not radiate. She has also had a negative stress test in the past. Denies any nausea or vomiting. Patient states that she has not tried any inhalers or other management at this time. - Related Data Allergies/Adverse Reactions: No Known Allergies Allergy (Unverified 07/23/19 12:02) Past Medical History - Past Medical History Cardiac Medical History: Reports: Hx Hypercholesterolemia, Hx Hypertension Pulmonary Medical History: Denies: Hx COPD Endocrine Medical History: Reports: Hx Diabetes Mellitus Type 2. Denies: Hx Diabetes Mellitus Type 1 Renal/ Medical History: Denies: Hx Peritoneal Dialysis Psychiatric Medical History: Reports: Hx Anxiety, Hx Depression Past Surgical History: Reports: Hx Hysterectomy - Immunizations Hx Diphtheria, Pertussis, Tetanus Vaccination: Yes Physical Exam - Vital signs Vitals: Temp Pulse Resp BP Pulse Ox 97.2 F 75 16 154/95 H 100 06/25/20 17:28 06/25/20 17:28 06/25/20 17:28 06/25/20 17:28 06/25/20 17:28 General: No acute distress. Alert and oriented x3. Sitting comfortably in a stretcher. Skin: Intact without any jaundice, pallor, or erythema. Warm and dry. HEENT: Normocephalic, atraumatic. Pupils are equal round reactive to light and accommodation. Extraocular movements are intact. TMs without erythema or bulging. Canals are clear. Nares patent without any discharge. Teeth in good condition. Pharynx without erythema, edema, or exudates. No tonsillar enlargement. Uvula is midline. Airway is patent. Neck: Supple with no lymphadenopathy. Full range of motion. Heart: Regular rate and rhythm. S1,S2. No murmurs, rubs, or gallops. Tender to palpation along left anterior and posterior chest. Lungs: Diminshed to auscultation bilaterally. No wheezes, rhonchi, rales. Equal chest expansion. No retractions. Abdomen: Soft, nontender to palpation, nondistended. Positive bowel sounds in all 4 quadrants. No hepatosplenomegaly. No masses. No CVA tenderness bilaterally. Neuro: GCS 15. Moving all extremities without discomfort. Psych: Mood and affect appropriate. 06/25/20 18:29 Course - Vital Signs Vital signs: Temp Pulse Resp BP Pulse Ox 97.2 F 75 16 154/95 H 100 06/25/20 17:28 06/25/20 17:28 06/25/20 17:28 06/25/20 17:28 06/25/20 17:28 Doctor's Discharge - Discharge [facility]errals: [facility] [Primary Care Provider] - Follow up as needed
[2020-06-25 19:06] LABS: ABSOLUTE EOSINOPHILS # (AUTO) 0.3 10^3/uL (0.0-0.6); ABSOLUTE LYMPHOCYTES (AUTO) 2.2 10^3/uL (0.5-4.7); ABSOLUTE MONOCYTES (AUTO) 0.5 10^3/uL (0.1-1.4); ABSOLUTE NEUT (AUTO) 6.6 10^3/uL (1.7-8.2); BASOPHILS % (AUTO) 0.5 % (0-2); EOSINOPHILS % (AUTO) 3.2 % (0-6); HEMATOCRIT 35.4 % (36.0-47.0); HEMOGLOBIN 11.9 g/dL (12.0-15.5); LYMPHOCYTES % (AUTO) 22.7 % (13-45); MEAN CORPUSCULAR HEMOGLOBIN 29.4 pg (27.0-33.4); MEAN CORPUSCULAR HGB CONC 33.7 g/dL (32.0-36.0); MEAN CORPUSCULAR VOLUME 87 fl (80-97); MONOCYTES % (AUTO) 5.1 % (3-13); PLATELET COUNT 356 10^3/uL (150-450); RED BLOOD COUNT 4.06 10^6/uL (3.72-5.28); RED CELL DISTRIBUTION WIDTH 14.8 % (11.5-14.0); SEGMENTED NEUTROPHILS % (AUTO) 68.5 % (42-78); TOTAL CELLS COUNTED % (AUTO) 100 %; WHITE BLOOD COUNT 9.7 10^3/uL (4.0-10.5)
--- NOTE | 2020-06-25 19:18 | RADIOLOGY REPORT (SQ) ---
EXAM DESCRIPTION: CHEST 2 VIEWS IMAGES COMPLETED DATE/TIME: 06/25/2020 6:50 pm REASON FOR STUDY: chest pain COMPARISON: 05/02/2019 EXAM PARAMETERS: NUMBER OF VIEWS: two views TECHNIQUE: Digital Frontal and Lateral radiographic views of the chest acquired. RADIATION DOSE: NA LIMITATIONS: none FINDINGS: LUNGS AND PLEURA: No opacities, masses or pneumothorax. No pleural effusion. MEDIASTINUM AND HILAR STRUCTURES: No masses or contour abnormalities. HEART AND VASCULAR STRUCTURES: Heart normal size. No evidence for failure. BONES: No acute findings. HARDWARE: None in the chest. OTHER: No other significant finding. IMPRESSION: NO ACUTE RADIOGRAPHIC FINDING IN THE CHEST. TECHNICAL DOCUMENTATION: JOB ID: [id number] 2010 [email or web address]- All Rights Reserved Reading location - IP/workstation name: [email or web address]
[2020-06-25 19:23] LABS: ALBUMIN 4.6 g/dL (3.5-5.0); ALKALINE PHOSPHATASE 70 U/L (38-126); ANION GAP 9 (5-19); ASPARTATE AMINO TRANSFERASE 61 U/L (14-36); BILIRUBIN,DIRECT 0.1 mg/dL (0.0-0.4); BILIRUBIN,TOTAL 0.5 mg/dL (0.2-1.3); BLOOD UREA NITROGEN 14 mg/dL (7-20); CALCIUM 10.1 mg/dL (8.4-10.2); CARBON DIOXIDE 28 mmol/L (22-30); CHLORIDE 103 mmol/L (98-107); CREATINE KINASE 99 U/L (30-135); GLUCOSE 93 mg/dL (75-110); POTASSIUM 4.9 mmol/L (3.6-5.0); TOTAL PROTEIN 7.8 g/dL (6.3-8.2)
[2020-06-25 19:35] LABS: CREATINE KINASE MB 1.09 ng/mL (<4.55)
[2020-06-25 19:39] LABS: TROPONIN I < 0.012 ng/mL
--- NOTE | 2020-06-25 21:24 | EKG REPORT ---
SEVERITY:- NORMAL ECG - SINUS RHYTHM : Confirmed by: Snow Santana MD 25-Jun-2020 21:23:51
--- NOTE | 2020-06-25 22:19 | ER Document Report ---
ED Respiratory Problem - General Chief Complaint: Cough Stated Complaint: COUGH,SHORT OF BREATH Time Seen by Provider: 06/25/20 18:21 Primary Care Provider: [facility] [NO LOCAL MD] - Follow up in 1 week Notes: Patient is a 55-year-old female who presents emergency department with a chief complaint of left-sided chest pain that started about 3 days ago. Patient reports that she has shortness of breath when she takes a deep breath in. Patient denies any smoking. Describes her pain as an aching pain that starts in her left shoulder and radiates down her left anterior chest. Patient has an albuterol inhaler and states the last time she used it was 3 days ago. Denies any leg swelling, long car rides, or control use. Patient reports a history of ovarian cancer, but had surgery to have it removed. Patient has a history of hypertension, diabetes, hyperlipidemia, GERD. States that she saw [facility] and had labs drawn on May 29, but has not received results. Denies any contact with anybody who tested positive for COVID-19. Denies any fever. TRAVEL OUTSIDE OF THE [place] IN LAST 30 DAYS: No - Related Data Allergies/Adverse Reactions: No Known Allergies Allergy (Unverified 07/23/19 12:02) Past Medical History - General Information source: Patient - Social History Smoking Status: Never Smoker Family History: Reviewed & Not Pertinent, Hypertension - Past Medical History Cardiac Medical History: Reports: Hx Hypercholesterolemia, Hx Hypertension Pulmonary Medical History: Denies: Hx COPD Endocrine Medical History: Reports: Hx Diabetes Mellitus Type 2. Denies: Hx Diabetes Mellitus Type 1 Renal/ Medical History: Denies: Hx Peritoneal Dialysis Psychiatric Medical History: Reports: Hx Anxiety, Hx Depression Past Surgical History: Reports: Hx Hysterectomy - Immunizations Hx Diphtheria, Pertussis, Tetanus Vaccination: Yes Review of Systems - Review of Systems Notes: REVIEW OF SYSTEMS: CONSTITUTIONAL : Denies recent illness. Denies recent unintentional weight loss. Denies fever, chills, or sweats. EENT: Denies eye, ear, throat, or mouth pain, discharge, or symptoms. Denies nasal or sinus congestion. CARDIOVASCULAR: See HPI. RESPIRATORY: See HPI. GASTROINTESTINAL: Denies nausea, vomiting, and diarrhea. Denies abdominal pain. Denies constipation. GENITOURINARY: Denies difficulty urinating, burning, blood in urine, urgency or frequency. MUSCULOSKELETAL: Denies neck and back pain. Denies joint pain or swelling. SKIN: Denies rash, itchiness, or lesions HEMATOLOGIC : Denies easy bruising or bleeding. LYMPHATIC: Denies swollen, painful, enlarged glands. NEUROLOGICAL: Denies no numbness or tingling denies weakness. Denies headache. Denies altered mental status. Denies alteration in speech. PSYCHIATRIC: Denies stress, anxiety, alteration in sleep patterns, or depression. All other systems reviewed and negative. Physical Exam - Vital signs Vitals: Temp Pulse Resp BP Pulse Ox 97.2 F 75 16 154/95 H 100 06/25/20 17:28 06/25/20 17:28 06/25/20 17:28 06/25/20 17:28 06/25/20 17:28 - Notes Notes: PHYSICAL EXAMINATION: GENERAL: Appears well, healthy, well-nourished, no acute distress. HEAD: Normocephalic, atraumatic. EYES: PERRL, conjunctiva normal, all extraocular movements intact, sclera nonicteric ENT: Moist mucous membranes. NECK: Supple, no noticeable swelling, redness, rash. Normal range of motion. LUNGS: Equal breath sounds bilaterally and clear to auscultation. No wheezes rales or rhonchi. CARDIOVASCULAR: S1-S2, regular rate, regular rhythm. Radial pulses 2+, normal. ABDOMEN: Normoactive bowel sounds. Soft, nontender, no guarding, no rebound tenderness, and no masses palpated. EXTREMITIES: Normal strength and range of motion, no pitting or edema. No cyanosis. NEUROLOGICAL: Moves all extremities upon command. Strength 5/5 in all extremities. PSYCH: Normal mood, normal affect. SKIN: Warm, dry. No rash, lesions, ulcerations noted. Normal skin turgor. CHEST: Tenderness upon palpation to anterior chest and shoulder. Course - Re-evaluation Re-evalutation: 06/25/20 22:24 Hematology is unremarkable, other than a slight anemia with a hemoglobin of 11.9, which is the patient's normal. D-dimer negative. AST and ALT are slightly elevated, most likely due to to nonalcoholic fatty liver disease. Tro ponin is negative. Have a low suspicion for an SC, pulmonary emboli, pneumonia, aortic dissection, pneumothorax, or any life-threatening etiology at this time. Chest x-ray is normal. Patient is to follow-up with her primary care provider in regards to this visit. She is in agreement with this plan. Follow-up precautions were given. Verbal discharge instructions were given to the patient. They verbalized understanding. They are stable for discharge. - Vital Signs Vital signs: Temp Pulse Resp BP Pulse Ox 97.2 F 75 12 143/72 H 97 06/25/20 17:28 06/25/20 17:28 06/25/20 22:31 06/25/20 22:31 06/25/20 22:31 - Laboratory Results Result Diagrams: 06/25/20 18:55 06/25/20 18:55 Laboratory Results Interpreted: 06/25/20 06/25/20 18:55 18:55 Hgb 11.9 L Hct 35.4 L RDW 14.8 H Est GFR (MDRD) Non-Af 54 L AST 61 H ALT 48 H Critical Laboratory Results Reviewed: No Critical Results - Radiology Results Critical Radiology Results Reviewed: No Critical Results - EKG Interpretation by Me Additional EKG results interpreted by me: 06/25/20 22:18 Sinus rhythm. Rate 71. IN 152; QRS 78; QT 420; QTc 457. No ST elevations or depressions noted. No acute change from previous EKG done on 07/23/2019. Discharge - Discharge Clinical Impression: Pleurisy Chest pain Qualifiers: Chest pain type: unspecified Qualified Code(s): R07.9 - Chest pain, unspecified Condition: Stable Disposition: HOME, SELF-CARE Additional Instructions: You were seen today in the emergency department for chest pain. Your work-up was very reassuring. Your chest pain is due to pain in the muscles of your chest and shoulder. Take Tylenol 1000 mg every 6 hours as needed for pain. Follow-up with your primary care provider in regards to this visit. [facility]: [facility] [NO LOCAL MD] - Follow up in 1 week
[2020-06-25 23:39] VITALS: BP 121/78
== END 2020-06-25 23:36 | disposition home or self-care (01) ==
LOC: ER 17:21
DX: R09.1 Pleurisy (principal); R07.9 Chest pain, unspecified; R06.02 Shortness of breath; M25.512 Pain in left shoulder; I10 Essential (primary) hypertension; E11.9 Type 2 diabetes mellitus without complications; D64.9 Anemia, unspecified; R74.01 Elevation of levels of liver transaminase levels
CPT/HCPCS: 36415; 71046; 80053; 82550; 82553; 83735; 84484; 85025; 85379; 93005; 93010; 99285

== ENCOUNTER 2020-07-31 18:47 | Emergency (ER) | payer SELFPAY ==
[2020-07-31 18:53] VITALS: BP 142/81
[2020-07-31] MEDS ORDERED: DIPH/PERTUSS(ACELL)/TETANUS VAC/PF 0.5 ML SYR (>=10YO) IM ONE (19:04)
--- NOTE | 2020-07-31 19:05 | ER Document Report ---
HPI - HPI Time Seen by Provider: 07/31/20 18:50 Pain Level: 2 Context: Patient is a 55 year old female presents emergency department with a laceration to her left thumb. She was trying to open a toaster box with a knife and cutting her finger. She is right-handed. She is not currently on blood thinners. She is able to flex and extend her thumb with no difficulty. She does not know when her last tetanus shot was. - ROS Systems Reviewed and Negative: Yes All other systems reviewed and negative - CONSTITUTIONAL Constitutional: DENIES: Fever, Chills - REPRODUCTIVE Reproductive: DENIES: : - DERM Skin Color: Normal Skin Problems: None Past Medical History - Social History Smoking Status: Never Smoker Chew tobacco use (# tins/day): No Frequency of alcohol use: None Drug Abuse: None Family History: Reviewed & Not Pertinent, Hypertension Patient has homicidal ideation: No - Past Medical History Cardiac Medical History: Reports: Hx Hypercholesterolemia, Hx Hypertension Pulmonary Medical History: Denies: Hx COPD Endocrine Medical History: Reports: Hx Diabetes Mellitus Type 2. Denies: Hx Diabetes Mellitus Type 1 Renal/ Medical History: Denies: Hx Peritoneal Dialysis Psychiatric Medical History: Reports: Hx Anxiety, Hx Depression Past Surgical History: Reports: Hx Hysterectomy - Immunizations Hx Diphtheria, Pertussis, Tetanus Vaccination: Yes Vertical Provider Document - CONSTITUTIONAL Agree With Documented VS: Yes Exam Limitations: No Limitations General Appearance: No Apparent Distress - INFECTION CONTROL TRAVEL OUTSIDE OF THE [place] IN LAST 30 DAYS: No - HEENT HEENT: Atraumatic, Normocephalic - NECK Neck: Normal Inspection - RESPIRATORY Respiratory: No Respiratory Distress - CARDIOVASCULAR Cardiovascular: Regular Rate, Regular Rhythm - MUSCULOSKELETAL/EXTREMETIES Musculoskeletal/Extremeties: FROM - NEURO Level of Consciousness: Awake, Alert - DERM Integumentary: Warm, Dry, No Rash, Laceration - Left thumb; see proceedure note Course - Re-evaluation Re-evalutation: 07/31/20 19:24 Patient was superficial. Laceration was closed with Dermabond. Will place pa tient on Keflex. Abdomen suspicion for any tendon or bone injury. Patient tolerated Dermabond well. Placed in a splint for comfort and to prevent flexing. See procedure note. Tetanus vaccine was updated. Follow-up precautions were given. Verbal discharge instructions were given to the patient . They verbalized understanding. They are stable for discharge. - Vital Signs Vital signs: Temp Pulse Resp BP Pulse Ox 98.2 F 92 16 142/81 H 97 07/31/20 18:51 07/31/20 18:51 07/31/20 18:51 07/31/20 18:51 07/31/20 18:51 - Laboratory Results Critical Laboratory Results Reviewed: No Critical Results - Radiology Results Critical Radiology Results Reviewed: No Critical Results Procedures - Laceration/Wound Repair Left Thumb Wound length (cm): 1 Wound's Depth, Shape: Superficial, Linear Wound explored: Clean, No foreign body removed Wound Repaired With: Dermabond Post-procedure wound care: Sterile dressing applied, Splint applied - finger Complications: No Hands back picture: 1 - Superficial laceration Discharge - Discharge Clinical Impression: Finger laceration Qualifiers: Encounter type: initial encounter Finger: thumb Damage to nail status: without damage Foreign body presence: without foreign body Laterality: left Qualified Code(s): S61.012A - Laceration without foreign body of left thumb without damage to nail, initial encounter Condition: Stable Disposition: HOME, SELF-CARE Instructions: Prophylactic Antibiotic ([facility]), Tetanus Immunization Given ([facility]) Additional Instructions: The wound has been closed with glue. Please do not pick at the at the wound. Do not cover it with any kind of antibiotic ointment as this can cause the glue to loosen. Return immediately if you develop spreading redness around the wound, pus from the wound, worsening pain, or a fever of >100.4. Keep the area c lean and dry. Prescriptions: Cephalexin Monohydrate [Keflex 500 mg Capsule] 500 mg PO Q6H 5 Days #20 capsule
== END 2020-07-31 19:17 | disposition home or self-care (01) ==
LOC: ER 18:47
DX: S61.012A Laceration without foreign body of left thumb without damage to nail, initial encounter (principal); W26.0XXA Contact with knife, initial encounter; Y93.89 Activity, other specified; Y92.009 Unspecified place in unspecified non-institutional (private) residence as the place of occurrence of the external cause; E11.9 Type 2 diabetes mellitus without complications; I10 Essential (primary) hypertension; Z23 Encounter for immunization
CPT/HCPCS: 90471; 90715; 99283